=== PATIENT | female | born 1995 | race African-American/Black ===

== ENCOUNTER 2016-10-21 19:44 | Emergency (ER) | payer MEDICAID, OTHER ==
[~2016-10-21] VITALS: Ht 165.1 cm; Wt 64.9 kg
[~2016-10-21 19:44] MED LIST: MACROBID100 MG ORAL
[2016-10-21] MEDS ORDERED: NKM (20:20)
[2016-10-21] MEDS ORDERED: IBUPROFEN600 MG ORAL (21:13)
[2016-10-21 21:25] VITALS: BP 109/71
--- NOTE | 2016-10-21 22:24 | Emergency Room Report ---
History of Present Illness General Chief Complaint: General Complaint Source: Patient, Medical Record Present Illness HPI 21-year-old female presents ED for evaluation. States that she's been having right hand numbness and tingling sensation for the last 2 days. Denies trauma. Noted tingling sensations initially in the hand now spread to forearm. Notes pain which is sharp. 10 out of 10. Radiating through the forearm. No aggravating relieving factors. States pain is worse when she wakes up and slowly resolves. Denies chest pain or shortness of breath. Denies any weakness to the arm. No other aggravating or relieving factors. Denies any other associated symptoms Allergies: Coded Allergies: LATEX (Unverified Allergy, Mild, Hives, 04/02/15) Kiwi (Verified Allergy, Unknown, 10/21/16) PINEAPPLE (Unverified Allergy, Unknown, 04/22/15) Patient History Past Medical History: asthma Past Surgical History: none Pertinent Family History: none Social History: Denies: alcohol use, drug use, smoking Last Menstrual Period: 10/07/2016 Now: No : 1 Para: 0 Reviewed Nursing Documentation: PMH: Agreed, PSxH: Agreed Nursing Documentation-PMH Hx Cardiac Problems: Yes - Murmur Hx Asthma: Yes Review of Systems All Other Systems: negative except mentioned in HPI Physical Exam Vital Signs Date Time Temp Pulse Resp B/P Pulse Ox O2 Delivery O2 Flow Rate FiO2 10/21/16 19:49 98.4 70 16 117/79 95 Room Air Sp02 EP Interpretation: reviewed, normal General Appearance: no apparent distress, alert, GCS 15, non-toxic Head: normocephalic Eyes: bilateral eye PERRL, bilateral eye normal inspection ENT: normal ENT inspection Neck: normal inspection Respiratory: chest non-tender, lungs clear, normal breath sounds, speaking full sentences Cardiovascular #1: regular rate, rhythm, no edema Gastrointestinal: normal inspection Rectal: deferred Genitourinary: no CVA tenderness Musculoskeletal: back normal, gait/station normal, normal range of motion, tender - worsening tingling with pressure on median nerve Neurologic: alert, oriented x3, responsive, motor strength/tone normal, sensory intact, speech normal, sensory deficit - R hand Psychiatric: judgement/insight normal, memory normal, mood/affect normal, no suicidal/homicidal ideation Skin: normal inspection Lymphatic: normal inspection Procedures Splinting Splinting : Consent: Verbal Pre-Made Type: velcro Splint: wrist Pre-Proc Neuro Vasc Exam: normal Post-Proc Neuro Vasc Exam: normal Patient Tolerated: Well Complications: None Medical Decision Making Diagnostic Impression: Primary Impression: Carpal tunnel syndrome Qualified Codes: G56.01 - Carpal tunnel syndrome, right upper limb ER Course Hospital Course 21-year-old female presents to ED complaining of R hand/tingling pain no trauma Differential diagnoses include: Fracture, dislocation, sprain, contusion, bursitis Clinical course Patient placed on stretcher. After initial history, physical exam reveals a young female in no acute distress. There is pain localized to the fourth and fifth digits of right hand. Pain radiates down the forearm. Pain is worsened with median nerve compression. Consistent with carpal tunnel syndrome placed in wrist splint Diagnosis - carpal tunnel syndrome stable and discharged to home with prescription for Motrin. Followup with PMD. Return to ED if symptoms recur or worsen Last Vital Signs Date Time Temp Pulse Resp B/P Pulse Ox O2 Delivery O2 Flow Rate FiO2 10/21/16 19:49 98.4 70 16 117/79 95 Room Air Status: improved Disposition: HOME, SELF-CARE Condition: Stable Scripts Ibuprofen* (MOTRIN*) 600 Mg Tablet 600 MG ORAL Q8H Y for For Pain, #30 TAB 0 Refills Prov: CECI PORRAS M.D. 10/21/16 Patient Instructions: Carpal Tunnel Syndrome, [id number] CECI PORRAS M.D. Oct 21, 2016 22:24
== END 2016-10-21 21:30 | disposition home or self-care (01) ==
LOC: EMR 20:19
DX: G56.01 Carpal tunnel syndrome, right upper limb (principal); J45.909 Unspecified asthma, uncomplicated; R01.1 Cardiac murmur, unspecified; Z91.040 Latex allergy status; Z91.018 Allergy to other foods
CPT/HCPCS: 29260; 99283

== ENCOUNTER 2016-10-23 03:35 | Emergency (ER) | payer OTHER ==
[~2016-10-23] VITALS: Ht 165.1 cm; Wt 64.9 kg
[~2016-10-23 03:35] MED LIST changes: +IBUPROFEN600 MG ORAL; +NKM
[2016-10-23 04:12] LABS: APPEARANCE,URINE CLOUDY; KETONES,URINE NEGATIVE (NEGATIVE); LEUKOCYTE ESTERASE ,URINE 1+ (NEGATIVE); NITRITE,URINE NEGATIVE (NEGATIVE); PH,URINE 6.5 (4.5-8.0); PROTEIN,URINE 2+ (NEGATIVE); UROBILINOGEN,URINE NORMAL MG/DL (0.0-1.0)
[2016-10-23 04:20] LABS: BACTERIA,URINE FEW /HPF; RBC,URINE TNTC /HPF (0 - 2); SQUAMOUS EPITHELIAL CELL,UR FEW /LPF (NONE/OCC)
[2016-10-23 04:50] LABS: BASOPHILS % (AUTO) 0.7 % (0.0-2.0); EOSINOPHILS % (AUTO) 6.2 % (0.0-3.0); LYMPHOCYTES % (AUTO) 35.6 % (20.0-45.0); MEAN CORPUSCULAR HEMOGLOBIN 29.6 PG (27.0-31.0); MEAN CORPUSCULAR HGB CONC 33.1 G/DL (32.0-36.0); MEAN CORPUSCULAR VOLUME 89 FL (80-99); MEAN PLATELET VOLUME 8.8 FL (6.5-10.1); MONOCYTES % (AUTO) 8.7 % (1.0-10.0); NEUTROPHILS % (AUTO) 48.8 % (45.0-75.0); PLATELET COUNT 203 K/UL (150-450); RED BLOOD COUNT 4.66 M/UL (4.20-5.40); RED CELL DISTRIBUTION WIDTH 13.1 % (11.6-14.8); WHITE BLOOD COUNT 4.9 K/UL (4.8-10.8)
[2016-10-23 05:08] LABS: ALANINE AMINOTRANSFERASE 10 U/L (3-33); ALBUMIN/GLOBULIN RATIO 1.2 (1.0-2.7); ANION GAP 13 (5-15); ASPARTATE AMINO TRANSFERASE 17 U/L (5-40); CALCIUM 9.4 mg/dL (8.6-10.2); CARBON DIOXIDE 27 mEQ/L (20-30); CHLORIDE 100 mEQ/L (98-107); CREATININE 0.9 mg/dL (0.5-0.9); GLOMERULAR FILTRATION RATE > 60 mL/min (>60); HEMOLYSIS 2; LIPASE 49 U/L (< 60); POTASSIUM 4.4 mEQ/L (3.4-4.9); SODIUM 140 mEQ/L (135-145); TOTAL PROTEIN 7.8 g/dL (6.6-8.7)
[2016-10-23 05:27] VITALS: BP 105/67
[2016-10-23 05:41] VITALS: BP 105/67
--- NOTE | 2016-10-23 06:40 | Emergency Room Report ---
History of Present Illness General Chief Complaint: Vaginal Source: Patient Present Illness HPI 21-year-old female presents ED complaining of vaginal bleeding and lower abdominal pain. States symptoms started yesterday. Pain is cramping, 8/10, nonradiating. No aggravating relieving factors. Patient states her period finished at end of September. Patient states that she had a miscarriage last year she has had irregular periods. Patient states she also has history of ruptured ovarian cyst. No aggravating or relieving factors. Denies any other associated symptoms Allergies: Coded Allergies: LATEX (Unverified Allergy, Mild, Hives, 04/02/15) Kiwi (Verified Allergy, Unknown, 10/21/16) PINEAPPLE (Unverified Allergy, Unknown, 04/22/15) Patient History Past Medical History: asthma Past Surgical History: none Pertinent Family History: none Social History: Denies: alcohol use, drug use, smoking Last Menstrual Period: OCT 07 Now: No : 0 Para: 1 Immunizations: UTD Reviewed Nursing Documentation: PMH: Agreed, PSxH: Agreed Nursing Documentation-PMH Hx Asthma: Yes Review of Systems All Other Systems: negative except mentioned in HPI Physical Exam Vital Signs Date Time Temp Pulse Resp B/P Pulse Ox O2 Delivery O2 Flow Rate FiO2 10/23/16 03:45 97.9 60 18 101/66 97 Room Air Sp02 EP Interpretation: reviewed, normal General Appearance: no apparent distress, alert, GCS 15, non-toxic Head: normocephalic, atraumatic Eyes: bilateral eye PERRL, bilateral eye normal inspection ENT: hearing grossly normal, normal pharynx, no angioedema, normal voice Neck: full range of motion, supple/symm/no masses Respiratory: chest non-tender, lungs clear, normal breath sounds, speaking full sentences Cardiovascular #1: regular rate, rhythm, no edema Cardiovascular #2: 2+ carotid (R), 2+ carotid (L), 2+ radial (R), 2+ radial (L) , 2+ dorsalis pedis (R), 2+ dorsalis pedis (L) Gastrointestinal: normal bowel sounds, non tender, soft, non-distended, no guarding, no rebound Rectal: deferred Genitourinary: normal inspection, no CVA tenderness Musculoskeletal: back normal, gait/station normal, normal range of motion, non- tender Neurologic: alert, oriented x3, responsive, motor strength/tone normal, sensory intact, speech normal Psychiatric: judgement/insight normal, memory normal, mood/affect normal, no suicidal/homicidal ideation Reflexes: 3+ bicep (R), 3+ bicep (L), 3+ tricep (R), 3+ tricep (L), 3+ knee (R) , 3+ knee (L) Skin: normal color, no rash, warm/dry, well hydrated Lymphatic: no adenopathy Medical Decision Making Diagnostic Impression: Primary Impression: Dysfunctional uterine bleeding ER Course Hospital Course 21-year-old F presents to ED with lower abdominal pain, bleeding Differential diagnosis includes-appendicitis, cholecystitis, small bowel obstruction, gastritis, Clinical course Patient placed on stretcher. After initial history and physical I ordered labs , IV fluids, and US Labs - no leukocytosis, electrolytes ok, LFTs normal, UA unremarkable Pelvic US - no acute process reassurance given. I feel this is a highly complex case requiring extensive working including EKG/ Rhythm strip, Xray/CT/US, Blood/urine lab work, repeat exams while in ED, and administration of strong opiates/narcotics for pain control, admission to hospital or close patient follow up. Diagnosis - DUB Stable and discharged to home. Followup with PMD. Return to ED if symptoms recur or worsen Labs Test 10/23/16 03:15 10/23/16 04:40 Urine Color Yellow Urine Appearance Cloudy Urine pH 6.5 (4.5-8.0) Urine Specific [place] 1.015 (1.005-1.035) Urine Protein 2+ (NEGATIVE) Urine Glucose (UA) Negative (NEGATIVE) Urine Ketones Negative (NEGATIVE) Urine Occult Blood 5+ (NEGATIVE) Urine Nitrite Negative (NEGATIVE) Urine Bilirubin Negative (NEGATIVE) Urine Urobilinogen Normal MG/DL (0.0-1.0) Urine Leukocyte Esterase 1+ (NEGATIVE) Urine RBC Tntc /HPF (0 - 2) Urine WBC 2-4 /HPF (0 - 2) Urine Squamous Epithelial Cells Few /LPF (NONE/OCC) Urine Bacteria Few /HPF (NONE) Urine HCG, Qualitative Negative White Blood Count 4.9 K/UL (4.8-10.8) Red Blood Count 4.66 M/UL (4.20-5.40) Hemoglobin 13.8 G/DL (12.0-16.0) Hematocrit 41.6 % (37.0-47.0) Mean Corpuscular Volume 89 FL (80-99) Mean Corpuscular Hemoglobin 29.6 PG (27.0-31.0) Mean Corpuscular Hemoglobin Concent 33.1 G/DL (32.0-36.0) Red Cell Distribution Width 13.1 % (11.6-14.8) Platelet Count 203 K/UL (150-450) Mean Platelet Volume 8.8 FL (6.5-10.1) Neutrophils (%) (Auto) 48.8 % (45.0-75.0) Lymphocytes (%) (Auto) 35.6 % (20.0-45.0) Monocytes (%) (Auto) 8.7 % (1.0-10.0) Eosinophils (%) (Auto) 6.2 % (0.0-3.0) Basophils (%) (Auto) 0.7 % (0.0-2.0) Sodium Level 140 mEQ/L (135-145) Potassium Level 4.4 mEQ/L (3.4-4.9) Chloride Level 100 mEQ/L (98-107) Carbon Dioxide Level 27 mEQ/L (20-30) Anion Gap 13 (5-15) Blood Urea Nitrogen 18 mg/dL (7-23) Creatinine 0.9 mg/dL (0.5-0.9) Estimat Glomerular Filtration Rate > 60 mL/min (>60) Glucose Level 99 mg/dL (74-106) Calcium Level 9.4 mg/dL (8.6-10.2) Total Bilirubin 0.3 mg/dL (0.0-1.2) Aspartate Amino Transf (AST/SGOT) 17 U/L (5-40) Alanine Aminotransferase (ALT/SGPT) 10 U/L (3-33) Alkaline Phosphatase 72 U/L (35-104) Total Protein 7.8 g/dL (6.6-8.7) Albumin 4.4 g/dL (3.5-5.2) Globulin 3.4 g/dL Albumin/Globulin Ratio 1.2 (1.0-2.7) Lipase 49 U/L (< 60) CT/MRI/US Diagnostic Results CT/MRI/US Diagnostic Results : Imaging Test Ordered: Pelvic US Impression no acute process Last Vital Signs Date Time Temp Pulse Resp B/P Pulse Ox O2 Delivery O2 Flow Rate FiO2 10/23/16 05:41 97.9 67 18 105/67 98 Room Air Status: improved Disposition: HOME, SELF-CARE Condition: Stable Patient Instructions: Dysfunctional Uterine Bleeding CECI PORRAS M.D. Oct 23, 2016 06:40
--- NOTE | 2016-10-23 11:44 | Diagnostic Imaging Report ---
Indication: Pelvic pain, pelvic bleeding. Negative test Technique: Transabdominal and transvaginal images Comparison: 04/22/2015 Findings: Uterus is retroverted, measures 6.5 cm length by 2.9 cm AP. Endometrium measures 3 mm thick. No myometrial abnormalities. Right ovary 3 bone centimeters length. Left ovary measures 4.6 cm length. No adnexal mass. No free cul-de-sac fluid. No significant change Impression: Negative
== END 2016-10-23 06:27 | disposition home or self-care (01) ==
LOC: EMR 04:02
DX: N93.8 Other specified abnormal uterine and vaginal bleeding (principal); J45.909 Unspecified asthma, uncomplicated; Z91.040 Latex allergy status; Z91.018 Allergy to other foods
CPT/HCPCS: 36415; 76830; 76856; 80053; 81003; 81025; 83690; 85025; 99284

== ENCOUNTER 2016-11-19 22:02 | Emergency (ER) | payer OTHER ==
[~2016-11-19] VITALS: Ht 167.6 cm; Wt 66.7 kg
[2016-11-19] MEDS ORDERED: NKM (22:20)
[2016-11-19] MEDS ORDERED: IBUPROFEN600 MG ORAL (22:41)
[2016-11-19] MEDS ORDERED: Ketorolac 60mg Inj IM ONE (22:45)
--- NOTE | 2016-11-19 23:14 | Emergency Room Report ---
History of Present Illness General Chief Complaint: Sore Throat Source: Patient Present Illness HPI 21YOF with sore throat and cough for 1 week. C/o pain to left side of throat for 1 week associated with dry cough. Denies smoking, asthma. Denies fever/ chills, earache, chest pain, SOB, abd pain. Has not taken any OTC meds. Sick contact with similar symptom at home. Allergies: Coded Allergies: LATEX (Unverified Allergy, Mild, Hives, 04/02/15) Kiwi (Verified Allergy, Unknown, 10/21/16) PINEAPPLE (Unverified Allergy, Unknown, 04/22/15) Patient History Past Medical History: none Past Surgical History: none Pertinent Family History: none Social History: Denies: alcohol use, drug use, smoking Last Menstrual Period: 10/22/16 Now: No : 2 Para: 0 Immunizations: UTD Reviewed Nursing Documentation: PMH: Agreed, PSxH: Agreed Nursing Documentation-PMH Hx Cardiac Problems: Yes - heart murmur Hx Asthma: Yes Review of Systems All Other Systems: negative except mentioned in HPI Physical Exam Vital Signs Date Time Temp Pulse Resp B/P Pulse Ox O2 Delivery O2 Flow Rate FiO2 11/19/16 22:16 98.8 79 15 131/85 100 Room Air Sp02 EP Interpretation: reviewed, normal General Appearance: normal inspection, well appearing, no apparent distress, alert, GCS 15, non-toxic Head: normocephalic, atraumatic Eyes: bilateral eye EOMI, bilateral eye PERRL ENT: normal ENT inspection, hearing grossly normal, normal pharynx, no angioedema, normal voice, TMs + canals normal, uvula midline, moist mucus membranes Neck: normal inspection, full range of motion, supple, no bony tend Respiratory: normal inspection, lungs clear, normal breath sounds, no respiratory distress, no retraction, no wheezing Cardiovascular #1: regular rate, rhythm, no edema Gastrointestinal: normal inspection, normal bowel sounds, non tender, soft, no guarding, no hernia Genitourinary: no CVA tenderness Musculoskeletal: normal inspection, back normal, normal range of motion, Zunilda' s Sign negative Neurologic: normal inspection, alert, oriented x3, responsive, latin american studies director III-XII nml as tested, motor strength/tone normal, speech normal Psychiatric: normal inspection, judgement/insight normal, mood/affect normal Skin: normal inspection, normal color, no rash Lymphatic: normal inspection, other - Left throat adenopathy Medical Decision Making Diagnostic Impression: Primary Impression: Sore throat ER Course 21YO F with sore throat, likely laryngitis, viral pharyngitis given afebrile, no signs of strep/bacterial infection in throat or lungs, assoc with cough, sick contact at home. IM toradol and PO dex given in ED Rx iburpfoen PRN sore throat PMD followup as needed DC home Last Vital Signs Date Time Temp Pulse Resp B/P Pulse Ox O2 Delivery O2 Flow Rate FiO2 11/19/16 22:16 98.8 79 15 131/85 100 Room Air Status: improved Disposition: HOME, SELF-CARE Condition: Improved Scripts Ibuprofen* (MOTRIN*) 600 Mg Tablet 600 MG ORAL THREE TIMES A DAY for sore throat, #30 TAB 0 Refills Prov: MALORIE FLEMING M.D. 11/19/16 Referrals: [employer] [facility],REFERRIN (PCP) Patient Instructions: Laryngitis Additional Instructions: - Take high-dose ibuprofen 600mg every 8 hours with food/water as needed for sore throat - Try tea with honey or throat lozenges (quinteros's) to soothe your throat - Drink plenty of water MALORIE FLEMING M.D. Nov 19, 2016 23:14
[2016-11-19 23:19] VITALS: BP 125/76
== END 2016-11-19 23:19 | disposition home or self-care (01) ==
LOC: EMR 22:11
DX: R07.0 Pain in throat (principal); R05 Cough; Z91.040 Latex allergy status; Z91.018 Allergy to other foods; J45.909 Unspecified asthma, uncomplicated
CPT/HCPCS: 96372; 99283; J8540

== ENCOUNTER 2016-12-29 12:14 | Emergency (ER) | payer SELFPAY ==
[~2016-12-29] VITALS: Ht 165.1 cm; Wt 66.7 kg
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
[2016-12-29 13:00] LABS: APPEARANCE,URINE CLEAR; KETONES,URINE NEGATIVE (NEGATIVE); LEUKOCYTE ESTERASE ,URINE 1+ (NEGATIVE); NITRITE,URINE NEGATIVE (NEGATIVE); PH,URINE 6.5 (4.5-8.0); PROTEIN,URINE NEGATIVE (NEGATIVE); UROBILINOGEN,URINE NORMAL MG/DL (0.0-1.0)
[2016-12-29 13:07] VITALS: BP 111/76
[2016-12-29 13:18] LABS: BACTERIA,URINE FEW /HPF; RBC,URINE 0-2 /HPF (0 - 2); SQUAMOUS EPITHELIAL CELL,UR FEW /LPF (NONE/OCC)
[2016-12-29] MEDS ORDERED: ANUSOL-HC25 MG RECTAL (13:21)
[2016-12-29] MEDS ORDERED: CEPHALEXIN500 MG ORAL (13:21)
[2016-12-29] MEDS ORDERED: DOCUSATE SODIU250 MG ORAL (13:21)
[2016-12-29 13:26] VITALS: BP 111/76
== END 2016-12-29 13:32 | disposition home or self-care (01) ==
LOC: EMR 12:26
DX: K59.00 Constipation, unspecified (principal); K64.8 Other hemorrhoids; J45.909 Unspecified asthma, uncomplicated; Z91.040 Latex allergy status; Z91.018 Allergy to other foods; Z80.41 Family history of malignant neoplasm of ovary
CPT/HCPCS: 81001; 99284

== ENCOUNTER 2017-01-31 18:11 | Emergency (ER) | payer OTHER ==
[~2017-01-31] VITALS: Ht 165.1 cm; Wt 64.9 kg
[~2017-01-31 18:11] MED LIST changes: +ANUSOL-HC25 MG RECTAL; +CEPHALEXIN500 MG ORAL; +DOCUSATE SODIU250 MG ORAL
[2017-01-31] MEDS ORDERED: Acetaminophen 500mg (ES) tab ORAL ONE (19:00)
[2017-01-31] MEDS ORDERED: Morphine Sulfate 4mg/ml Inj IVP ONE (19:15)
[2017-01-31] MEDS ORDERED: Metoclopramide 10mg/2ml Inj IVP ONE (19:15)
[2017-01-31 19:39] LABS: BASOPHILS % (AUTO) 1.1 % (0.0-2.0); EOSINOPHILS % (AUTO) 0.2 % (0.0-3.0); LYMPHOCYTES % (AUTO) 20.3 % (20.0-45.0); MEAN CORPUSCULAR HEMOGLOBIN 30.7 PG (27.0-31.0); MEAN CORPUSCULAR HGB CONC 34.3 G/DL (32.0-36.0); MEAN CORPUSCULAR VOLUME 90 FL (80-99); MEAN PLATELET VOLUME 9.4 FL (6.5-10.1); MONOCYTES % (AUTO) 10.4 % (1.0-10.0); PLATELET COUNT 134 K/UL (150-450); RED BLOOD COUNT 4.29 M/UL (4.20-5.40); RED CELL DISTRIBUTION WIDTH 11.9 % (11.6-14.8); WHITE BLOOD COUNT 4.8 K/UL (4.8-10.8)
[2017-01-31 19:41] LABS: APPEARANCE,URINE SLIGHTLY CLOUDY; KETONES,URINE NEGATIVE (NEGATIVE); LEUKOCYTE ESTERASE ,URINE 3+ (NEGATIVE); NITRITE,URINE NEGATIVE (NEGATIVE); PH,URINE 6 (4.5-8.0); PROTEIN,URINE 2+ (NEGATIVE); UROBILINOGEN,URINE NORMAL MG/DL (0.0-1.0)
[2017-01-31 19:49] LABS: ALANINE AMINOTRANSFERASE 12 U/L (3-33); ALBUMIN/GLOBULIN RATIO 1.2 (1.0-2.7); ANION GAP 16 (5-15); ASPARTATE AMINO TRANSFERASE 25 U/L (5-40); CALCIUM 8.9 mg/dL (8.6-10.2); CARBON DIOXIDE 24 mEQ/L (20-30); CHLORIDE 95 mEQ/L (98-107); GLOMERULAR FILTRATION RATE > 60 mL/min (>60); HEMOLYSIS 46; LIPASE 45 U/L (< 60); POTASSIUM 4.2 mEQ/L (3.4-4.9); SODIUM 135 mEQ/L (135-145); TOTAL PROTEIN 7.8 g/dL (6.6-8.7)
[2017-01-31 19:57] LABS: BACTERIA,URINE MODERATE /HPF; SQUAMOUS EPITHELIAL CELL,UR MANY /LPF (NONE/OCC); WBC,URINE 20-30 /HPF (0 - 2)
[2017-01-31] MEDS ORDERED: IBUPROFEN600 MG ORAL (20:32)
[2017-01-31] MEDS ORDERED: CEPHALEXIN500 MG ORAL (20:32)
[2017-01-31 20:49] VITALS: BP 98/58
--- NOTE | 2017-01-31 21:11 | Emergency Room Report ---
History of Present Illness General Chief Complaint: Abdominal Pain Source: Patient Present Illness HPI The patient is a 21-year-old female presenting for abdominal pain and fever for the past 3 days. The patient was treated here one week prior for constipation and hemorrhoid and states that the constipation has resolved. She is now complaining of 8/10 pain in the midabdomen and does not radiate. No known provoking or relieving factors. She has not tried any medications for the fever. She does admit to nausea and one episode of vomiting this morning. She denies other symptoms including neck pain or stiffness, rash, shortness of breath, chest pain, dysuria, vaginal discharge, back pain Allergies: Coded Allergies: LATEX (Unverified Allergy, Mild, Hives, 04/02/15) Kiwi (Verified Allergy, Unknown, 10/21/16) PINEAPPLE (Unverified Allergy, Unknown, 04/22/15) Patient History Past Medical History: see triage record Pertinent Family History: none Last Menstrual Period: 01/05/17 Reviewed Nursing Documentation: PMH: Agreed, PSxH: Agreed Nursing Documentation-PMH Past Medical History: No History, Except For Hx Cardiac Problems: Yes - heart murmur Hx Asthma: Yes Review of Systems All Other Systems: negative except mentioned in HPI Physical Exam Vital Signs Date Time Temp Pulse Resp B/P Pulse Ox O2 Delivery O2 Flow Rate FiO2 01/31/17 18:28 102.6 112 18 109/72 98 Room Air Sp02 EP Interpretation: reviewed, normal General Appearance: no apparent distress, alert, GCS 15, non-toxic Head: normocephalic, atraumatic Eyes: bilateral eye PERRL, bilateral eye normal inspection ENT: hearing grossly normal, normal pharynx, no angioedema, normal voice, uvula midline Neck: full range of motion, no bony tend, supple/symm/no masses Respiratory: chest non-tender, lungs clear, normal breath sounds, speaking full sentences Cardiovascular #1: regular rate, rhythm, no edema Gastrointestinal: normal bowel sounds, soft, non-distended, no guarding, no rebound, tenderness - epigastric and suprapubic Rectal: deferred Musculoskeletal: back normal, gait/station normal, normal range of motion, non- tender Neurologic: alert, oriented x3, responsive, motor strength/tone normal, sensory intact, speech normal Psychiatric: judgement/insight normal, memory normal, mood/affect normal, no suicidal/homicidal ideation Skin: normal color, no rash, warm/dry, well hydrated Lymphatic: no adenopathy Medical Decision Making PA Attestation Dr. Burton is my supervising physician. Patient management was discussed with my supervising physician Diagnostic Impression: Primary Impression: UTI (urinary tract infection) Qualified Codes: N39.0 - Urinary tract infection, site not specified ER Course The patient is a 21-year-old female presenting for abdominal pain and fever Differential diagnoses considered include but not limited to gastritis, pancreatitis, appendicitis, , UTI, among others PE: pt is febrile. NAD HEENT is unremarkable Lungs are clear to auscultation bilaterally Abdomen is soft. Normal bowel sounds. There is tenderness to palpation over the epigastric and suprapubic regions only. No guarding. No CVA tenderness Blood work is unremarkable. No leukocytosis Urinalysis shows signs of infection She is given IV fluids, Zofran, morphine, and Tylenol. Fever has reduced and pain is now under control She will be discharged home and treated for UTI with Keflex. ER precautions given Laboratory Tests Test 01/31/17 18:39 01/31/17 19:20 Urine Color Yellow Urine Appearance Slightly cloudy Urine pH 6 (4.5-8.0) Urine Specific Sagle 1.020 (1.005-1.035) Urine Protein 2+ (NEGATIVE) H Urine Glucose (UA) Negative (NEGATIVE) Urine Ketones Negative (NEGATIVE) Urine Occult Blood 1+ (NEGATIVE) H Urine Nitrite Negative (NEGATIVE) Urine Bilirubin Negative (NEGATIVE) Urine Urobilinogen Normal MG/DL (0.0-1.0) Urine Leukocyte Esterase 3+ (NEGATIVE) H Urine RBC 2-4 /HPF (0 - 2) H Urine WBC 20-30 /HPF (0 - 2) H Urine Squamous Epithelial Cells Many /LPF (NONE/OCC) H Urine Bacteria Moderate /HPF (NONE) H Urine HCG, Qualitative Negative White Blood Count 4.8 K/UL (4.8-10.8) Red Blood Count 4.29 M/UL (4.20-5.40) Hemoglobin 13.2 G/DL (12.0-16.0) Hematocrit 38.5 % (37.0-47.0) Mean Corpuscular Volume 90 FL (80-99) Mean Corpuscular Hemoglobin 30.7 PG (27.0-31.0) Mean Corpuscular Hemoglobin Concent 34.3 G/DL (32.0-36.0) Red Cell Distribution Width 11.9 % (11.6-14.8) Platelet Count 134 K/UL (150-450) L Mean Platelet Volume 9.4 FL (6.5-10.1) Neutrophils (%) (Auto) 68.0 % (45.0-75.0) Lymphocytes (%) (Auto) 20.3 % (20.0-45.0) Monocytes (%) (Auto) 10.4 % (1.0-10.0) H Eosinophils (%) (Auto) 0.2 % (0.0-3.0) Basophils (%) (Auto) 1.1 % (0.0-2.0) Sodium Level 135 mEQ/L (135-145) Potassium Level 4.2 mEQ/L (3.4-4.9) Chloride Level 95 mEQ/L (98-107) L Carbon Dioxide Level 24 mEQ/L (20-30) Anion Gap 16 (5-15) H Blood Urea Nitrogen 8 mg/dL (7-23) Creatinine 1.0 mg/dL (0.5-0.9) H Estimate Glomerular Filtration Rate > 60 mL/min (>60) Glucose Level 95 mg/dL (74-106) Calcium Level 8.9 mg/dL (8.6-10.2) Total Bilirubin 0.4 mg/dL (0.0-1.2) Aspartate Amino Transferase (AST) 25 U/L (5-40) Alanine Aminotransferase (ALT) 12 U/L (3-33) Alkaline Phosphatase 57 U/L (35-104) Total Protein 7.8 g/dL (6.6-8.7) Albumin 4.3 g/dL (3.5-5.2) Globulin 3.5 g/dL Albumin/Globulin Ratio 1.2 (1.0-2.7) Lipase 45 U/L (< 60) Lab Results Impression CBC shows no leukocytosis. CMP unremarkable UA shows signs of infection Last Vital Signs Date Time Temp Pulse Resp B/P Pulse Ox O2 Delivery O2 Flow Rate FiO2 01/31/17 18:28 102.6 112 18 109/72 98 Room Air Status: improved Disposition: HOME, SELF-CARE Condition: Improved Scripts Cephalexin* (KEFLEX*) 500 Mg Capsule 500 MG ORAL EVERY 6 HOURS, #28 CAP Prov: ARMANDO MONTOYA 01/31/17 Ibuprofen* (MOTRIN*) 600 Mg Tablet 600 MG ORAL Q8H Y for For Pain, #30 TAB 0 Refills Prov: ARMANDO MONTOYA 01/31/17 Referrals: [facility],REFERRING (PCP) Patient Instructions: Urinary Tract Infection Additional Instructions: I discussed my findings with the patient. All questions and concerns have been answered. Treatment and medication compliance have been addressed. I advised the patient that they need to follow up with PMD in 3-5 days. Return to ED if symptoms worsen, new symptoms arise, or if needed for any reason. Patient verbalized understanding of discharge instructions. ARMANDO MONTOYA Jan 31, 2017 21:11
== END 2017-01-31 20:49 | disposition home or self-care (01) ==
LOC: EMR 20:32
DX: N39.0 Urinary tract infection, site not specified (principal); R50.9 Fever, unspecified; R11.2 Nausea with vomiting, unspecified; Z91.040 Latex allergy status; Z91.018 Allergy to other foods
CPT/HCPCS: 36415; 80053; 81003; 81025; 83690; 85025; 87086; 96360; 96374; 96375; 99284; J2270; J2765

== ENCOUNTER 2017-05-31 23:30 | Emergency (ER) | payer OTHER ==
[~2017-05-31] VITALS: Ht 170.2 cm; Wt 61.2 kg
[2017-06-01] MEDS ORDERED: Albuterol ud Inhalation HHN ONE
[2017-06-01] MEDS ORDERED: Ipratropium 0.02% Inh Soln 2.5ml UD HHN ONE
[2017-06-01 00:06] VITALS: BP 104/73
[2017-06-01] MEDS ORDERED: AZITHROMYCIN250 MG ORAL (00:55)
[2017-06-01] MEDS ORDERED: PREDNISONE20 MG ORAL (00:55)
[2017-06-01] MEDS ORDERED: ALBUTEROL SULF8.5 GM INH (00:55)
[2017-06-01 01:02] VITALS: BP 104/73
--- NOTE | 2017-06-01 01:13 | Emergency Room Report ---
History of Present Illness General Chief Complaint: Syncope Source: Patient Present Illness HPI 21-year-old female presents ED her evaluation. Patient states that for last 1 month she's been having a persistent cough which is productive with greenish phlegm. Has tried cowg-ryx-aolhcgl medications without relief. States she had a childhood history of asthma but does not have an inhaler at this time. Notes difficulty with deep breaths. Denies chest pain. Denies fevers chills. Patient states she feels weak. No other aggravating relieving factors. Denies any other associated symptoms Allergies: Coded Allergies: LATEX (Unverified Allergy, Mild, Hives, 04/02/15) Kiwi (Verified Allergy, Unknown, 10/21/16) PINEAPPLE (Unverified Allergy, Unknown, 04/22/15) Patient History Past Medical History: asthma Past Surgical History: none Pertinent Family History: none Social History: Denies: smoking, alcohol use, drug use Last Menstrual Period: may 17 Now: No : 2 Immunizations: UTD Reviewed Nursing Documentation: PMH: Agreed, PSxH: Agreed Nursing Documentation-PMH Hx Cardiac Problems: Yes - heart murmur Hx Asthma: Yes Review of Systems All Other Systems: negative except mentioned in HPI Physical Exam Vital Signs Date Time Temp Pulse Resp B/P (MAP) Pulse Ox O2 Delivery O2 Flow Rate FiO2 05/31/17 23:31 98.2 76 18 117/76 98 06/01/17 00:06 Room Air Sp02 EP Interpretation: reviewed, normal General Appearance: no apparent distress, alert, GCS 15, non-toxic Head: normocephalic ENT: normal ENT inspection Neck: normal inspection Respiratory: decreased breath sounds, wheezing Cardiovascular #1: regular rate, rhythm, no edema Gastrointestinal: normal inspection Rectal: deferred Genitourinary: no CVA tenderness Musculoskeletal: normal inspection Neurologic: alert, oriented x3, responsive, motor strength/tone normal, sensory intact, speech normal Psychiatric: normal inspection Skin: normal inspection Lymphatic: normal inspection Medical Decision Making Diagnostic Impression: Primary Impression: Atypical pneumonia ER Course Hospital Course 21-year-old female presents to ED complaining of cough, chest tightness, weakness x 1 month Differential diagnoses include: URI, bronchitis, asthma/COPD, pneumonia Clinical course Patient placed on stretcher. After initial history and physical I ordered CXR and nebulizer treatment. CXR shows no lobar infiltrate Upon reassessment patient states cough and symptoms have improved. Given persistence of symptoms x1 month we will treat as atypical pneumonia I prescribe antibiotics Diagnosis - atypical pneumonia Stable and discharged home with prescriptions for Rx prednisone, Zpack, albuterol. Instructed to followup with PMD. Return to ED if symptoms recur or worsen Chest X-Ray Diagnostic Results Chest X-Ray Diagnostic Results : # of Views/Limited/Complete: 1 View Indication: Other - cough EP Interpretation: Yes Interpretation: no consolidation, no effusion, no pneumothorax, no acute cardiopulmonary disease Impression: No acute disease Electronically Signed by: Electronically signed by Justin Suggs MD Last Vital Signs Date Time Temp Pulse Resp B/P (MAP) Pulse Ox O2 Delivery O2 Flow Rate FiO2 06/01/17 01:02 98.2 66 14 104/73 98 Room Air Status: improved Disposition: HOME, SELF-CARE Condition: Stable Scripts Albuterol Sulfate* (ALBUTEROL SULFATE MDI*) 8.5 Gm Hfa.aer.ad 2 PUFF INH Q6H, #1 EA 0 Refills Prov: JUSTIN SUGGS M.D. 06/01/17 Prednisone* (PREDNISONE*) 20 Mg Tablet 40 MG ORAL DAILY, #10 TAB Prov: JUSTIN SUGGS M.D. 06/01/17 Azithromycin* (ZITHROMAX*) 250 Mg Tablet 250 MG ORAL DAILY, #6 TAB 0 Refills Take two tablets by mouth today, then take one tablet by mouth daily for four days Prov: JUSTIN SUGGS M.D. 06/01/17 Referrals: [facility],REF (PCP) Patient Instructions: Community-Acquired Pneumonia, Adult, Eepo-lo-Fltv JUSTIN SUGGS M.D. Jun 01, 2017 01:13
--- NOTE | 2017-06-01 11:40 | Diagnostic Imaging Report ---
Indication: Dyspnea Comparison: None A single view chest radiograph was obtained. Findings: Cardiomediastinal appearance is within normal limits for age. Pulmonary vascularity is appropriate. The diaphragmatic contour is smooth and costophrenic angles are sharp. No pleural effusions are identified. The bones are unremarkable. Impression: No acute findings
== END 2017-06-01 01:05 | disposition home or self-care (01) ==
LOC: EMR 23:50
DX: J18.9 Pneumonia, unspecified organism (principal); J45.909 Unspecified asthma, uncomplicated; Z91.040 Latex allergy status; Z91.018 Allergy to other foods
CPT/HCPCS: 71010; 94664; 99284

== ENCOUNTER 2017-08-28 14:36 | Emergency (ER) | payer OTHER ==
[~2017-08-28] VITALS: Ht 167.6 cm; Wt 59.9 kg
[~2017-08-28 14:36] MED LIST changes: +ALBUTEROL SULF8.5 GM INH; +AZITHROMYCIN250 MG ORAL; +PREDNISONE20 MG ORAL
[2017-08-28 14:45] VITALS: BP 117/73
[2017-08-28] MEDS ORDERED: Lidocaine 2% Visc 15ml soln ORAL ONE (15:30)
--- NOTE | 2017-08-28 15:30 | Emergency Room Report ---
History of Present Illness General Chief Complaint: Flu Like Symptoms Source: Patient Present Illness HPI 20-year-old female presents to ED complaining of flulike symptoms, sore throat and cough for the past few days. Patient reports history of fever yesterday up to 104, patient denies taking medications with mild relief of symptoms. Patient denies fever today. Patient reports history of sick contacts, states she has been taking care of her nephew who was recently diagnosed with flu and pneumonia; states she is concerned she may have pneumonia. Reports a history of asthma and treated with her inhaler; denies acute asthma symptoms currently. Patient states she uses her inhaler at home for acute exacerbations. Patient denies vomiting, chest pain, SOB. Allergies: Coded Allergies: LATEX (Unverified Allergy, Mild, Hives, 04/02/15) Kiwi (Verified Allergy, Unknown, 10/21/16) PINEAPPLE (Unverified Allergy, Unknown, 04/22/15) Patient History Past Medical History: see triage record Past Surgical History: unable to obtain Social History: Denies: smoking, alcohol use, drug use Last Menstrual Period: on period Now: No Immunizations: UTD Reviewed Nursing Documentation: PMH: Agreed, PSxH: Agreed Nursing Documentation-PMH Past Medical History: No History, Except For Hx Cardiac Problems: Yes - heart murmur Hx Asthma: Yes Review of Systems All Other Systems: negative except mentioned in HPI Physical Exam Vital Signs Date Time Temp Pulse Resp B/P (MAP) Pulse Ox O2 Delivery O2 Flow Rate FiO2 08/28/17 14:45 99.7 16 117/73 99 Room Air 08/28/17 14:45 83 Sp02 EP Interpretation: reviewed, normal General Appearance: no apparent distress, alert, GCS 15, non-toxic Head: normocephalic, atraumatic Eyes: bilateral eye normal inspection, bilateral eye PERRL, bilateral eye EOMI ENT: hearing grossly normal, normal pharynx, no angioedema, normal voice, TMs + canals normal, uvula midline, moist mucus membranes, pharyngeal erythema Neck: full range of motion, supple/symm/no masses Respiratory: lungs clear, normal breath sounds, no respiratory distress, no retraction, no accessory muscle use, no wheezing, rhonchi - intermittent end inspiratory rhonchi, speaking full sentences, other - no crackles Cardiovascular #1: regular rate, rhythm Gastrointestinal: non tender, soft, non-distended, no guarding, no rebound Musculoskeletal: back normal, gait/station normal, normal range of motion, non- tender Neurologic: alert, oriented x3, responsive, motor strength/tone normal, sensory intact, speech normal Skin: normal color, no rash, warm/dry, well hydrated Lymphatic: adenopathy Medical Decision Making PA Attestation Dr. Suggs is my supervising physician with whom patient management has been discussed with. Diagnostic Impression: Primary Impression: Sore throat ER Course Pt presents to ED c/o sore throat, cough, and flu-like symptoms. DDX considered but are not limited to influenza, viral URI, pneumonia, strep throat, rhinitis, sinusitis, otitis media, peritonsillar abscess. VITAL SIGNS are WNL, patient is .afebrile. ORDERS: Chest X-ray ordered, results show no acute disease, per the official radiology report. ED INTERVENTIONS: Ibuprofen Viscous lidocaine DISCHARGE: At this time pt is stable for d/c to home. -Rx given for Motrin/Ibuprofen for fever/pain. -Rx given for Amoxicillin Patient to take medications as instructed Will provide with patient care instructions and any necessary prescriptions. Care plan and follow-up instructions provided. Patient instructed to follow-up with primary care provider in 3 - 5 days. Patient questions asked and answered. ER precautions given. Patient instructed to return to ER immediately for any new or worsening of symptoms including but not limited to increasing SOB, persistent fever. Chest X-Ray Diagnostic Results Chest X-Ray Diagnostic Results : Chest X-Ray Ordered: Yes # of Views/Limited/Complete: 2 View Indication: Chest Pain EP Interpretation: Yes DUGLAS Xray: Interpretation reviewed, by supervising MD, and agrees with findings. Interpretation: no consolidation, no effusion, no pneumothorax, no acute cardiopulmonary disease Impression: No acute disease DUGLAS Scribe Text Zack Hodge PA-Tresa Last Vital Signs Date Time Temp Pulse Resp B/P (MAP) Pulse Ox O2 Delivery O2 Flow Rate FiO2 08/28/17 14:49 83 16 Room Air 08/28/17 14:45 99.7 117/73 99 Disposition: HOME, SELF-CARE Condition: Stable Scripts Ibuprofen* (MOTRIN*) 600 Mg Tablet 600 MG ORAL Q8H Y for For Pain, #30 TAB 0 Refills Prov: Josh Hodge P.A. 08/28/17 Amoxicillin* (AMOXIL*) 500 Mg Capsule 500 MG ORAL EVERY 8 HOURS for 7 Days, #21 CAP Prov: Josh Hodge 08/28/17 Patient Instructions: INFLUENZA (Adult) Additional Instructions: Follow with primary care provider in 3 - 5 days. Take medications as directed. Patient questions asked and answered. ER precautions given, patient instructed to return to ER immediately for any new or worsening of symptoms including but not limited to fever, voice changes, difficulty breathing, SOB. Josh Hodge Aug 28, 2017 15:30
[2017-08-28] MEDS ORDERED: AMOXICILLIN500 MG ORAL (16:33)
[2017-08-28] MEDS ORDERED: IBUPROFEN600 MG ORAL (16:34)
[2017-08-28 16:43] VITALS: BP 109/78
--- NOTE | 2017-08-28 16:55 | Diagnostic Imaging Report ---
Indication: Chest pain Comparison: None 2 views of the chest obtained. Findings: Cardiomediastinal silhouette and pulmonary vascularity are within normal limits for age. The diaphragmatic contour is smooth and costophrenic angles are sharp. No pleural effusions are identified. The bones are unremarkable. Impression: No acute disease
== END 2017-08-28 16:45 | disposition home or self-care (01) ==
LOC: EMR 15:12
DX: J02.9 Acute pharyngitis, unspecified (principal); J45.909 Unspecified asthma, uncomplicated; Z91.040 Latex allergy status; Z91.018 Allergy to other foods
CPT/HCPCS: 71046; 99284

== ENCOUNTER 2017-09-01 16:59 | Emergency (ER) | payer OTHER ==
[~2017-09-01] VITALS: Ht 170.2 cm; Wt 59.0 kg
[~2017-09-01 16:59] MED LIST changes: +AMOXICILLIN500 MG ORAL
[2017-09-01 17:07] VITALS: BP 116/78
--- NOTE | 2017-09-01 17:24 | Emergency Room Report ---
History of Present Illness General Chief Complaint: Flu Like Symptoms Source: Patient Present Illness HPI Patient presents with reports of ongoing nausea patient reports that she was here Previously with cough bodyaches Since then she has continued to have increased nausea vomiting Bodyache Denies any chest pain she feels that the cough is somewhat better Denies any abdominal pain Unknown regarding fever Patient reports that she had a significant sick contacts Allergies: Coded Allergies: LATEX (Unverified Allergy, Mild, Hives, 04/02/15) Kiwi (Verified Allergy, Unknown, 10/21/16) PINEAPPLE (Unverified Allergy, Unknown, 04/22/15) Patient History Past Medical History: see triage record Pertinent Family History: none Last Menstrual Period: 08/28/17 Now: No Reviewed Nursing Documentation: PMH: Agreed, PSxH: Agreed Nursing Documentation-PMH Past Medical History: No History, Except For Hx Cardiac Problems: Yes - heart murmur Hx Asthma: Yes Review of Systems All Other Systems: negative except mentioned in HPI Physical Exam Vital Signs Date Time Temp Pulse Resp B/P (MAP) Pulse Ox O2 Delivery O2 Flow Rate FiO2 09/01/17 17:02 100.0 115 16 116/78 96 Room Air Sp02 EP Interpretation: reviewed, normal General Appearance: no apparent distress Head: normocephalic, atraumatic Eyes: bilateral eye PERRL, bilateral eye EOMI ENT: hearing grossly normal, normal pharynx, TMs + canals normal, uvula midline Neck: full range of motion, supple, no meningismus, no bony tend Respiratory: lungs clear, normal breath sounds, no rhonchi, no respiratory distress, no retraction, no accessory muscle use Cardiovascular #1: normal peripheral pulses, regular rate, rhythm, no edema, no gallop, no JVD, no murmur Gastrointestinal: normal bowel sounds, non tender, soft, no mass, no organomegaly, non-distended, no guarding, no hernia, no pulsatile mass, no rebound Genitourinary: no CVA tenderness Musculoskeletal: normal inspection Neurologic: oriented x3, responsive, medical transcription III-XII nml as tested, motor strength/ tone normal, sensory intact Psychiatric: mood/affect normal Skin: normal color, no rash, warm/dry, palpation normal Lymphatic: normal inspection, no adenopathy Medical Decision Making Diagnostic Impression: Primary Impression: Influenza-like symptoms Additional Impression: Vomiting ER Course Multiple differentials considered Given the patient's vomiting and discomfort IV was established with hydration And antiemetics Patient's white blood for count is mildly low also clinically showing signs of viral syndrome I do not suspect meningitis Patient provide significant family history regarding ovarian cancer with the family including grandmother Patient has a followup with gynecology next week At this time given the previous presentation and now the symptoms as noted with vomiting and myalgia appears to be in line with flu like symptoms and the patient remains hemodynamically stable Will have initial conservative outpatient Labs Test 09/01/17 17:30 09/01/17 17:35 White Blood Count 3.6 K/UL (4.8-10.8) Red Blood Count 4.53 M/UL (4.20-5.40) Hemoglobin 13.1 G/DL (12.0-16.0) Hematocrit 39.7 % (37.0-47.0) Mean Corpuscular Volume 88 FL (80-99) Mean Corpuscular Hemoglobin 28.9 PG (27.0-31.0) Mean Corpuscular Hemoglobin Concent 33.0 G/DL (32.0-36.0) Red Cell Distribution Width 12.2 % (11.6-14.8) Platelet Count 156 K/UL (150-450) Mean Platelet Volume 7.8 FL (6.5-10.1) Neutrophils (%) (Auto) 64.4 % (45.0-75.0) Lymphocytes (%) (Auto) 23.7 % (20.0-45.0) Monocytes (%) (Auto) 11.1 % (1.0-10.0) Eosinophils (%) (Auto) 0.2 % (0.0-3.0) Basophils (%) (Auto) 0.6 % (0.0-2.0) Urine HCG, Qualitative Negative Sodium Level 137 MMOL/L (136-145) Potassium Level 3.6 MMOL/L (3.5-5.1) Chloride Level 100 MMOL/L (98-107) Carbon Dioxide Level 27 MMOL/L (21-32) Anion Gap 10 mmol/L (5-15) Blood Urea Nitrogen 10 mg/dL (7-18) Creatinine 0.9 MG/DL (0.55-1.30) Estimat Glomerular Filtration Rate > 60 mL/min (>60) Glucose Level 95 MG/DL (74-106) Calcium Level 9.4 MG/DL (8.5-10.1) Total Bilirubin 0.4 MG/DL (0.2-1.0) Aspartate Amino Transf (AST/SGOT) 22 U/L (15-37) Alanine Aminotransferase (ALT/SGPT) 17 U/L (12-78) Alkaline Phosphatase 72 U/L (46-116) Total Protein 8.6 G/DL (6.4-8.2) Albumin 3.9 G/DL (3.4-5.0) Globulin 4.7 g/dL Albumin/Globulin Ratio 0.8 (1.0-2.7) Lipase 153 U/L (73-393) Last Vital Signs Date Time Temp Pulse Resp B/P (MAP) Pulse Ox O2 Delivery O2 Flow Rate FiO2 09/01/17 17:07 115 16 Room Air 09/01/17 17:07 100.0 116/78 98 Status: improved Disposition: HOME, SELF-CARE Condition: Improved Scripts Ondansetron Odt* (ZOFRAN ODT*) 4 Mg Tab.rapdis 4 MG ORAL Q6H Y for Nausea & Vomiting, #12 TAB 0 Refills Prov: TEREZA SALMERON D.O. 09/01/17 Additional Instructions: Patient is provided with the discharge instructions notified to follow up with primary doctor in the next 2-3 days otherwise return to the er with any worsening symptoms. Please note that this report is being documented using [employer] technology. This can lead to erroneous entry secondary to incorrect interpretation by the dictating instrument. TEREZA SALMERON D.O. Sep 01, 2017 17:23
[2017-09-01 18:10] LABS: ANION GAP 10 mmol/L (5-15); BLOOD UREA NITROGEN 10 mg/dL (7-18); CALCIUM 9.4 MG/DL (8.5-10.1); CARBON DIOXIDE 27 MMOL/L (21-32); CHLORIDE 100 MMOL/L (98-107); CREATININE 0.9 MG/DL (0.55-1.30); POTASSIUM 3.6 MMOL/L (3.5-5.1); SODIUM 137 MMOL/L (136-145)
[2017-09-01 18:13] LABS: BASOPHILS % (AUTO) 0.6 % (0.0-2.0); EOSINOPHILS % (AUTO) 0.2 % (0.0-3.0); HEMATOCRIT 39.7 % (37.0-47.0); HEMOGLOBIN 13.1 G/DL (12.0-16.0); LYMPHOCYTES % (AUTO) 23.7 % (20.0-45.0); MEAN CORPUSCULAR VOLUME 88 FL (80-99); MONOCYTES % (AUTO) 11.1 % (1.0-10.0); NEUTROPHILS % (AUTO) 64.4 % (45.0-75.0); PLATELET COUNT 156 K/UL (150-450); RED BLOOD COUNT 4.53 M/UL (4.20-5.40); RED CELL DISTRIBUTION WIDTH 12.2 % (11.6-14.8); WHITE BLOOD COUNT 3.6 K/UL (4.8-10.8)
[2017-09-01 18:17] LABS: ALANINE AMINOTRANSFERASE 17 U/L (12-78); ALBUMIN 3.9 G/DL (3.4-5.0); ALBUMIN/GLOBULIN RATIO 0.8 (1.0-2.7); ALKALINE PHOSPHATASE 72 U/L (46-116); ASPARTATE AMINO TRANSFERASE 22 U/L (15-37); BILIRUBIN,TOTAL 0.4 MG/DL (0.2-1.0)
[2017-09-01] MEDS ORDERED: ZOFRAN ODT4 MG ORAL (18:33)
[2017-09-01 18:45] VITALS: BP 120/78
== END 2017-09-01 18:51 | disposition home or self-care (01) ==
LOC: EMR 17:25
DX: J11.1 Influenza due to unidentified influenza virus with other respiratory manifestations (principal); J45.909 Unspecified asthma, uncomplicated; R01.1 Cardiac murmur, unspecified; Z91.040 Latex allergy status; Z91.018 Allergy to other foods
CPT/HCPCS: 36415; 80053; 81025; 83690; 85025; 96361; 96374; 99284; J2405; 96372

== ENCOUNTER 2017-09-27 12:54 | Emergency (ER) | payer OTHER ==
[~2017-09-27] VITALS: Ht 160 cm; Wt 54.4 kg
[~2017-09-27 12:54] MED LIST changes: +ZOFRAN ODT4 MG ORAL
--- NOTE | 2017-09-27 13:24 | Emergency Room Report ---
History of Present Illness General Chief Complaint: Upper Respiratory Illness Source: Patient Present Illness HPI 22 yo female patient presents to ER complaining of flu-like symptoms for the past week. Patient reports cough, body aches, and vomiting. Reports dry cough and congestion. States coughing up mucus after prolonged coughing fits; denies blood in sputum. Patient denies SOB, chest pain. Patient reports recent personal history of flu-like symptoms "last month". Denies neck pain, CESPEDES, vision changes. Patient reports fever to 101. Patient reports taking Ibuprofen for relief of symptoms; last dosage yesterday. Patient reports hx of sick contacts; presents to ER with niece with similar symptoms. Patient denies abdominal pain, diarrhea, rash. Allergies: Coded Allergies: LATEX (Unverified Allergy, Mild, Hives, 04/02/15) Kiwi (Verified Allergy, Unknown, 10/21/16) MORPHINE (Verified Allergy, Unknown, 09/27/17) PINEAPPLE (Unverified Allergy, Unknown, 04/22/15) Patient History Past Medical History: see triage record Last Menstrual Period: 08/2017 Reviewed Nursing Documentation: PMH: Agreed, PSxH: Agreed Nursing Documentation-PMH Past Medical History: No History, Except For Hx Cardiac Problems: Yes - heart murmur Hx Asthma: Yes Review of Systems All Other Systems: negative except mentioned in HPI Physical Exam Vital Signs Date Time Temp Pulse Resp B/P (MAP) Pulse Ox O2 Delivery O2 Flow Rate FiO2 09/27/17 13:05 99.3 95 16 94/65 96 99.3 Sp02 EP Interpretation: reviewed, normal General Appearance: well appearing, no apparent distress, alert, GCS 15, non- toxic Head: normocephalic, atraumatic Eyes: bilateral eye normal inspection, bilateral eye PERRL ENT: normal pharynx, no angioedema, normal voice, TMs + canals normal, uvula midline, moist mucus membranes, nasal congestion, other - no pharyngeal erythema , no exudates Neck: full range of motion Respiratory: normal inspection, lungs clear, normal breath sounds, no rhonchi, no respiratory distress, no accessory muscle use, no wheezing, speaking full sentences Cardiovascular #1: regular rate, rhythm Gastrointestinal: normal bowel sounds, non tender, soft, no mass, no organomegaly, non-distended, no guarding, no rebound Musculoskeletal: back normal, digits/nails normal, gait/station normal, normal range of motion, no calf tenderness Neurologic: alert, oriented x3, responsive, motor strength/tone normal, normal gait Psychiatric: mood/affect normal Skin: no rash Lymphatic: no adenopathy Medical Decision Making PA Attestation Dr. Suggs is my supervising Physician whom patient management has been discussed with. Diagnostic Impression: Primary Impression: Upper respiratory infection ER Course Pt presents to ED c/o flu-like symptoms. DDX considered but are not limited to influenza, viral URI, strep throat, rhinitis, sinusitis, otitis media, gastritis. VITAL SIGNS patient is afebrile. ER COURSE: Patient provided with Tylenol and Zofran while in ER. Patient reports feeling better following administration of medication. Patient instructed likely viral etiology; informed patient that sick contacts in house may be passing to one another. Patient instructed to practice good hygiene practices at home to prevent spread to other members of household. Patient instructed to drink plenty of fluids. Patient reports understanding and agreement to treatment plan. DISCHARGE: At this time pt is stable for d/c to home. Patient resting comfortably, in no acute distress, nontoxic appearing. -Rx given for Tylenol/Acetaminophen for fever/pain. -Rx given for Zofran Patient to take medications as instructed Will provide with patient care instructions and any necessary prescriptions. Care plan and follow-up instructions provided. Patient instructed to follow-up with primary care provider in 3 - 5 days. Patient questions asked and answered. ER precautions given. Patient instructed to return to ER immediately for any new or worsening of symptoms including but not limited to increasing SOB, persistent fever. Last Vital Signs Date Time Temp Pulse Resp B/P (MAP) Pulse Ox O2 Delivery O2 Flow Rate FiO2 09/27/17 13:05 99.3 95 16 94/65 96 99.3 Disposition: HOME, SELF-CARE Condition: Stable Scripts Ondansetron Odt* (ZOFRAN ODT*) 4 Mg Tab.rapdis 4 MG ORAL Q6H Y for Nausea & Vomiting, #30 TAB Prov: Josh Hodge 09/27/17 Acetaminophen* (TYLENOL EXTRA STRENGTH*) 500 Mg Tablet 500 MG ORAL Q8H Y for Prn Headache/Temp > 101, #30 TAB 0 Refills Prov: Josh Hodge 2/17/18 Patient Instructions: Upper Respiratory Infection, Adult Additional Instructions: Followup with primary care provider in 3 -5 days. Take medications as directed. Patient questions asked and answered. ER precautions given, patient instructed to return to ER immediately for any new or worsening of symptoms. Josh Hodge Sep 27, 2017 13:24
[2017-09-27] MEDS ORDERED: Acetaminophen 500mg (ES) tab ORAL ONE (13:30)
[2017-09-27] MEDS ORDERED: TYLENOL EXTRA500 MG ORAL (13:42)
[2017-09-27] MEDS ORDERED: ZOFRAN ODT4 MG ORAL (13:42)
[2017-09-27 13:55] VITALS: BP 94/65
== END 2017-09-27 13:56 | disposition home or self-care (01) ==
LOC: EMR 13:54
DX: J06.9 Acute upper respiratory infection, unspecified (principal); J45.909 Unspecified asthma, uncomplicated; Z91.040 Latex allergy status; Z91.018 Allergy to other foods; Z88.5 Allergy status to narcotic agent
CPT/HCPCS: 99284

== ENCOUNTER 2018-03-26 05:19 | Emergency (ER) | payer OTHER ==
[~2018-03-26] VITALS: Ht 165.1 cm; Wt 63.5 kg
[~2018-03-26 05:19] MED LIST changes: +TYLENOL EXTRA500 MG ORAL
[2018-03-26 05:32] VITALS: BP 100/70
[2018-03-26] MEDS ORDERED: CIPROFLOXACIN500 M2 ORAL (05:44)
[2018-03-26] MEDS ORDERED: ZOFRAN4 M3 ORAL (05:44)
[2018-03-26 05:52] VITALS: BP 100/70
--- NOTE | 2018-03-26 05:53 | Emergency Room Report ---
History of Present Illness General Chief Complaint: Abdominal Pain Source: Patient Present Illness HPI Patient presents with complaints of left mid abdominal pain off-and-on for the past one month Patient reports that she was at [facility] several days ago Had fairly extensive blood work and urine sample test done she was negative for she reports that she is not quite sure what the CAT scan has shown but dad told her that she should follow up with chemical tester Denies any headache Denies any dysuria frequency Patient had questionable subjective fevers off and on as well Allergies: Coded Allergies: LATEX (Unverified Allergy, Mild, Hives, 04/02/15) Kiwi (Verified Allergy, Unknown, 10/21/16) MORPHINE (Verified Allergy, Unknown, 09/27/17) PINEAPPLE (Unverified Allergy, Unknown, 04/22/15) Patient History Past Medical History: see triage record Pertinent Family History: none Last Menstrual Period: last week Reviewed Nursing Documentation: PMH: Agreed; PSxH: Agreed Nursing Documentation-PMH Hx Cardiac Problems: Yes - heart murmur Hx Asthma: Yes Hx Gastrointestinal Problems: Yes - IBS Review of Systems All Other Systems: negative except mentioned in HPI Physical Exam Vital Signs Date Time Temp Pulse Resp B/P (MAP) Pulse Ox O2 Delivery O2 Flow Rate FiO2 03/26/18 05:25 99.0 99 16 100/70 99 Room Air 99.0 Sp02 EP Interpretation: reviewed, normal General Appearance: well appearing, no apparent distress Head: normocephalic, atraumatic Eyes: bilateral eye PERRL, bilateral eye EOMI ENT: hearing grossly normal, normal pharynx, TMs + canals normal, uvula midline Neck: full range of motion, supple, no meningismus, no bony tend Respiratory: lungs clear, normal breath sounds, no rhonchi, no respiratory distress, no retraction, no accessory muscle use Cardiovascular #1: normal peripheral pulses, regular rate, rhythm, no edema, no gallop, no JVD, no murmur Gastrointestinal: normal bowel sounds, non tender, soft, no mass, no organomegaly, non-distended, no guarding, no hernia, no pulsatile mass, no rebound Genitourinary: no CVA tenderness Musculoskeletal: normal inspection Neurologic: oriented x3, responsive, workers compensation attorney III-XII nml as tested, motor strength/ tone normal, sensory intact Psychiatric: mood/affect normal Skin: normal color, no rash, warm/dry, palpation normal Lymphatic: normal inspection, no adenopathy Medical Decision Making Diagnostic Impression: Primary Impression: Abdominal pain ER Course With the history exam and presentation, multiple differentials considered, including but not limited to appendicitis, gastritis, cholecystitis, diverticulitis Patient has a very soft benign abdominal exam Bowel sounds are appropriate Unfortunately I do not have a copy of the patient's CAT scan however patient reports that it did not show any emergency findings Patient reports that she has also had nonspecific diarrhea off-and-on Denies any recent travel Patient has had difficulty obtaining outpatient follow-up She will continue to attempt contact with her primary physician and close outpatient follow-up At this time given the patient's exam and fairly extensive recent workup I did not feel that repeat workup was warranted Patient asking for a note regarding her work for today and will attempt close follow-up Last Vital Signs Date Time Temp Pulse Resp B/P (MAP) Pulse Ox O2 Delivery O2 Flow Rate FiO2 03/26/18 05:32 99.0 99 16 100/70 99 Room Air 99.0 Status: unchanged Disposition: HOME, SELF-CARE Condition: Stable Scripts Ciprofloxacin Hcl* (CIPROFLOXACIN HCL*) 500 Mg Tablet 500 MG ORAL Q12H, #6 TAB 0 Refills Prov: Ceasar Siu DO 03/26/18 Ondansetron* (ZOFRAN*) 4 Mg Tablet 4 MG ORAL Q8HR PRN for Nausea & Vomiting, #12 TAB Prov: Ceasar Siu DO 03/26/18 Departure Forms: Return to Work Return to Work in (Days): 1 Return to Work Date: Mar 27, 2018 Patient Instructions: Abdominal Pain, Adult Additional Instructions: Patient is provided with the discharge instructions notified to follow up with primary doctor in the next 2-3 days otherwise return to the er with any worsening symptoms. Please note that this report is being documented using [employer] technology. This can lead to erroneous entry secondary to incorrect interpretation by the dictating instrument. Ceasar Siu DO Mar 26, 2018 05:53
== END 2018-03-26 05:52 | disposition home or self-care (01) ==
LOC: EMR 05:37
DX: R10.9 Unspecified abdominal pain (principal); J45.909 Unspecified asthma, uncomplicated; K58.9 Irritable bowel syndrome, unspecified
CPT/HCPCS: 99283

== ENCOUNTER 2018-06-22 23:58 | Emergency (ER) | payer OTHER ==
[~2018-06-22] VITALS: Ht 165.1 cm; Wt 56.7 kg
[~2018-06-22 23:58] MED LIST changes: +CIPROFLOXACIN500 M2 ORAL; +ZOFRAN4 M3 ORAL
[2018-06-23] MEDS ORDERED: ELIQUIS5 MG PO ×2 (00:13→01:03)
[2018-06-23 00:22] VITALS: BP 99/65
[2018-06-23 00:40] LABS: APPEARANCE,URINE CLOUDY; BILIRUBIN, URINE NEGATIVE (NEGATIVE); GLUCOSE, URINE (UA) NEGATIVE (NEGATIVE); KETONES,URINE NEGATIVE (NEGATIVE); LEUKOCYTE ESTERASE ,URINE 2+ (NEGATIVE); NITRITE,URINE NEGATIVE (NEGATIVE); PH,URINE 7 (4.5-8.0); PROTEIN,URINE 3+ (NEGATIVE); UROBILINOGEN,URINE 8 MG/DL (0.0-1.0)
[2018-06-23 00:50] LABS: COLOR,URINE YELLOW
[2018-06-23] MEDS ORDERED: BACTRIM DS TAB1 EAC1 ORAL (01:03)
--- NOTE | 2018-06-23 01:06 | Emergency Room Report ---
History of Present Illness General Chief Complaint: Female Urogenital Problems Source: Patient Present Illness HPI Patient present with complaints of urinary urgency and sensation of lateral infection Denies any pain with urination denies any abdominal pain denies any chest pain or short of breath Patient reports that she was also recently diagnosed with pulmonary embolism and is running low on her Eliquis Denies any vomiting or diarrhea Patient reports that she has had bladder infections in the past and this feels very similar Allergies: Coded Allergies: LATEX (Unverified Allergy, Mild, Hives, 04/02/15) Kiwi (Verified Allergy, Unknown, 10/21/16) MORPHINE (Verified Allergy, Unknown, 09/27/17) PINEAPPLE (Unverified Allergy, Unknown, 04/22/15) Patient History Past Medical History: see triage record Pertinent Family History: none Last Menstrual Period: unk Now: No Reviewed Nursing Documentation: PMH: Agreed; PSxH: Agreed Nursing Documentation-PMH Hx Cardiac Problems: Yes - heart murmur, Pulmonary embolism Hx Asthma: Yes Hx Gastrointestinal Problems: Yes - IBS Review of Systems All Other Systems: negative except mentioned in HPI Physical Exam Vital Signs Date Time Temp Pulse Resp B/P (MAP) Pulse Ox O2 Delivery O2 Flow Rate FiO2 06/23/18 00:08 98.8 88 16 93/64 96 06/23/18 00:22 Room Air Sp02 EP Interpretation: reviewed, normal General Appearance: well appearing, no apparent distress Head: normocephalic, atraumatic Eyes: bilateral eye PERRL, bilateral eye EOMI ENT: hearing grossly normal, normal pharynx, TMs + canals normal, uvula midline Neck: full range of motion, supple, no meningismus, no bony tend Respiratory: lungs clear, normal breath sounds, no rhonchi, no respiratory distress, no retraction, no accessory muscle use Cardiovascular #1: normal peripheral pulses, regular rate, rhythm, no edema, no gallop, no JVD, no murmur Gastrointestinal: normal bowel sounds, non tender, soft, no mass, no organomegaly, non-distended, no guarding, no hernia, no pulsatile mass, no rebound Musculoskeletal: normal inspection Neurologic: oriented x3, responsive, harmonica maker III-XII nml as tested, motor strength/ tone normal, sensory intact Psychiatric: mood/affect normal Skin: normal color, no rash, warm/dry, palpation normal Lymphatic: normal inspection, no adenopathy Medical Decision Making Diagnostic Impression: Primary Impression: UTI (urinary tract infection) ER Course Patient's urine sample that show evidence of UTI Patient also asking regarding refill of her Eliquis I did discuss that it would be most important and appropriate for her prescribing physicians to continue this medicine however given the importance of this medicine I did prescribe while the patient is attempting appropriate hematology follow-up Labs Test 06/23/18 00:20 Urine Color Yellow Urine Appearance Cloudy Urine pH 7 (4.5-8.0) Urine Specific [place] 1.010 (1.005-1.035) Urine Protein 3+ (NEGATIVE) Urine Glucose (UA) Negative (NEGATIVE) Urine Ketones Negative (NEGATIVE) Urine Blood 5+ (NEGATIVE) Urine Nitrite Negative (NEGATIVE) Urine Bilirubin Negative (NEGATIVE) Urine Urobilinogen 8 MG/DL (0.0-1.0) Urine Leukocyte Esterase 2+ (NEGATIVE) Urine RBC Tntc /HPF (0 - 2) Urine WBC 40-60 /HPF (0 - 2) Urine Squamous Epithelial Cells Moderate /LPF (NONE/OCC) Urine Bacteria Few /HPF (NONE) Urine HCG, Qualitative Negative (NEGATIVE) Last Vital Signs Date Time Temp Pulse Resp B/P (MAP) Pulse Ox O2 Delivery O2 Flow Rate FiO2 06/23/18 00:22 98.7 79 16 99/65 97 Room Air Status: unchanged Disposition: HOME, SELF-CARE Condition: Stable Scripts Apixaban (ELIQUIS) 5 Mg Tablet 5 MG PO DAILY, #20 TAB Prov: Ceasar Siu DO 06/23/18 Trimethoprim/Sulfamethoxazole 160/800* (BACTRIM DS TABLET*) 1 Each Tablet 1 TAB ORAL Q12H, #14 TAB 0 Refills Prov: Ceasar Siu DO 06/23/18 Patient Instructions: Urinary Tract Infection Additional Instructions: Patient is provided with the discharge instructions notified to follow up with primary doctor in the next 2-3 days otherwise return to the er with any worsening symptoms. Please note that this report is being documented using [employer] technology. This can lead to erroneous entry secondary to incorrect interpretation by the dictating instrument. Ceasar Siu DO Jun 23, 2018 01:06
[2018-06-23 01:13] VITALS: BP 97/68
[2018-06-23 01:14] VITALS: BP 97/68
== END 2018-06-23 01:18 | disposition home or self-care (01) ==
LOC: EMR 06-23 00:15
DX: N39.0 Urinary tract infection, site not specified (principal); J45.909 Unspecified asthma, uncomplicated; Z86.711 Personal history of pulmonary embolism; Z91.040 Latex allergy status; Z91.018 Allergy to other foods; Z88.5 Allergy status to narcotic agent
CPT/HCPCS: 81003; 81025; 87086; 99283

== ENCOUNTER 2019-06-24 01:30 | Emergency (ER) | payer MEDICAID, OTHER ==
[~2019-06-24] VITALS: Ht 170.2 cm; Wt 59.9 kg
[~2019-06-24 01:30] MED LIST changes: +BACTRIM DS TAB1 EAC1 ORAL; +ELIQUIS5 MG PO
[2019-06-24 01:44] VITALS: BP 102/65
--- NOTE | 2019-06-24 02:16 | Emergency Room Report ---
History of Present Illness General Chief Complaint: Pelvic Pain Source: Patient Present Illness HPI This is a 23-year-old female with history of pulmonary embolism. She presents with complaint of right pelvic pain. She had left pelvic pain heard 3 days ago. She went to [facility] and had an ultrasound that showed a complex left ovarian cyst measuring about 4 cm. There was septation and debris. She was sent home. Today she had some mild right-sided pain. She was concerned as when she came in. No dysuria frequency. No hematuria. Pain is mild. No nausea no vomiting. Denies any other complaint. Allergies: Coded Allergies: LATEX (Unverified Allergy, Mild, Hives, 04/02/15) Kiwi (Verified Allergy, Unknown, 10/21/16) MORPHINE (Verified Allergy, Unknown, 09/27/17) PINEAPPLE (Unverified Allergy, Unknown, 04/22/15) Patient History Past Medical History: see triage record, old chart reviewed Past Surgical History: none Pertinent Family History: none Social History: Denies: smoking Last Menstrual Period: 05/09/19 : 4 Para: 0 Immunizations: other Reviewed Nursing Documentation: PMH: Agreed; PSxH: Agreed Nursing Documentation-PMH Hx Cardiac Problems: Yes - Pulmonary Embolism Hx Asthma: Yes Hx Gastrointestinal Problems: Yes - IBS Review of Systems Eye: Denies: eye pain, blurred vision ENT: Denies: ear pain, nose congestion, throat swelling Respiratory: Denies: cough, shortness of breath Cardiovascular: Denies: chest pain, palpitations Gastrointestinal: Denies: abdominal pain, diarrhea, nausea, vomiting Musculoskeletal: Denies: back pain, joint pain Skin: Denies: rash Neurological: Denies: headache, numbness Endocrine: Denies: increased thirst, increased urine Hematologic/Lymphatic: Denies: easy bruising All Other Systems: negative except mentioned in HPI Physical Exam Vital Signs Date Time Temp Pulse Resp B/P (MAP) Pulse Ox O2 Delivery O2 Flow Rate FiO2 06/24/19 01:38 98.2 73 16 100/70 (80) 96 Room Air Normal vital signs Sp02 EP Interpretation: reviewed, normal General Appearance: well appearing, no apparent distress, alert Head: normocephalic, atraumatic Eyes: bilateral eye PERRL, bilateral eye EOMI ENT: hearing grossly normal, normal pharynx Neck: full range of motion, supple, no meningismus Respiratory: chest non-tender, lungs clear, normal breath sounds Cardiovascular #1: regular rate, rhythm, no murmur Gastrointestinal: normal bowel sounds, non tender, no mass, no organomegaly, no bruit, non-distended Musculoskeletal: back normal, gait/station normal, normal range of motion Psychiatric: mood/affect normal Medical Decision Making Diagnostic Impression: Primary Impression: Pelvic pain ER Course Patient presents with pelvic pain. She looks very comfortable. She was concerned about ovarian cyst since she had one on the left side. I see no need for repeat ultrasound since it did not any cyst on the right side from 3 days ago. I doubt that a large cyst would be developed that can cause torsion. Patient is very comfortable. No evidence of any infection. Patient reassured and told to repeat ultrasound and FINANCE BUSINESS MANAGER follow-up for the left complex ovarian cyst. She has a history of PE and miscarriages. No family history. She will need a hematology work-up to see if she has any abnormal antibody that predispose her for PE. In the meantime, recommend that patient take a baby aspirin every day. Last Vital Signs Date Time Temp Pulse Resp B/P (MAP) Pulse Ox O2 Delivery O2 Flow Rate FiO2 06/24/19 01:38 98.2 73 16 100/70 (80) 96 Room Air Status: improved Disposition: HOME, SELF-CARE Condition: Stable Scripts Aspirin* (ASPIR 81*) 81 Mg Tablet. 81 MG ORAL DAILY, #100 TAB Prov: Rafa Ford MD 06/24/19 Ibuprofen* (MOTRIN*) 600 Mg Tablet 600 MG ORAL THREE TIMES A DAY, #30 TAB 0 Refills Prov: Rafa Ford MD 06/24/19 Patient Instructions: Pelvic Pain, Female Additional Instructions: Follow-up with your doctor in 7 days. You may need a referral to see bank runner for follow-up on the left ovarian cyst. Return if symptoms worsen. Rafa Ford MD Jun 24, 2019 02:16
[2019-06-24 02:42] LABS: APPEARANCE,URINE CLEAR; BILIRUBIN, URINE NEGATIVE (NEGATIVE); GLUCOSE, URINE (UA) NEGATIVE (NEGATIVE); KETONES,URINE NEGATIVE (NEGATIVE); LEUKOCYTE ESTERASE ,URINE NEGATIVE (NEGATIVE); NITRITE,URINE NEGATIVE (NEGATIVE); PH,URINE 6 (4.5-8.0); UROBILINOGEN,URINE NORMAL MG/DL (0.0-1.0)
[2019-06-24 03:09] LABS: PROTEIN,URINE NEGATIVE (NEGATIVE)
[2019-06-24 03:10] LABS: COLOR,URINE PALE YELLOW
[2019-06-24] MEDS ORDERED: IBUPROFEN600 MG ORAL (03:23)
[2019-06-24] MEDS ORDERED: ASPIR 8181 MG ORAL (03:23)
[2019-06-24 03:26] VITALS: BP 106/70
== END 2019-06-24 03:30 | disposition home or self-care (01) ==
LOC: EMR 03:26
DX: R10.2 Pelvic and perineal pain (principal); J45.909 Unspecified asthma, uncomplicated; K58.9 Irritable bowel syndrome, unspecified; Z86.711 Personal history of pulmonary embolism; Z91.040 Latex allergy status; Z88.5 Allergy status to narcotic agent; Z91.018 Allergy to other foods
CPT/HCPCS: 81003; 81025; Z7502; 99283

== ENCOUNTER 2019-11-07 00:49 | Emergency (ER) | payer MEDICAID ==
[~2019-11-07] VITALS: Ht 165.1 cm; Wt 59.9 kg
[~2019-11-07 00:49] MED LIST changes: +ASPIR 8181 MG ORAL
[2019-11-07 00:58] VITALS: BP 103/58
--- NOTE | 2019-11-07 00:58 | NUR ---
ED Nurse Note: Walk-in patient with complaints of dizziness x 1 week, with an episode tonight while at work, employees noticed. Patient denies LOC, and admits to intermittent headaches. Line started and labs sent, 20G at right AC.
--- NOTE | 2019-11-07 01:12 | Emergency Room Report ---
History of Present Illness General Chief Complaint: Dizziness Source: Patient Present Illness HPI This is a 24-year-old female with a history of PE. She presents with chief complaint of dizziness and lightheadedness. This been ongoing for about a week. Worse when she stands up. At work today she states she blacked out for a few seconds. No head trauma. No shortness of breath. Does complain some occasional neck pain. No fever chills but decreased appetite. [place] nauseous but no vomiting. No diarrhea. No urinary complaint. Said that she is not . Allergies: Coded Allergies: LATEX (Unverified Allergy, Mild, Hives, 04/02/15) Kiwi (Verified Allergy, Unknown, 10/21/16) MORPHINE (Verified Allergy, Unknown, 09/27/17) PINEAPPLE (Unverified Allergy, Unknown, 04/22/15) COVID-19 Screening Contact w/high risk pt: No Recent Travel to affected area: No Experienced COVID-19 symptoms?: No Patient History Past Medical History: see triage record, old chart reviewed Past Surgical History: none Pertinent Family History: none Social History: Denies: smoking Last Menstrual Period: 10/12 Now: No Immunizations: other Reviewed Nursing Documentation: PMH: Agreed; PSxH: Agreed Nursing Documentation-PMH Hx Cardiac Problems: No Hx Asthma: Yes Hx Gastrointestinal Problems: No Hx Neurological Problems: No Review of Systems Eye: Denies: eye pain, blurred vision ENT: Denies: ear pain, nose congestion, throat swelling Respiratory: Denies: cough, shortness of breath Cardiovascular: Denies: chest pain, palpitations Gastrointestinal: Denies: abdominal pain, diarrhea, nausea, vomiting Musculoskeletal: Denies: back pain, joint pain Skin: Denies: rash Neurological: Reports: dizziness; Denies: headache, numbness Endocrine: Denies: increased thirst, increased urine Hematologic/Lymphatic: Denies: easy bruising All Other Systems: negative except mentioned in HPI Physical Exam Vital Signs Date Time Temp Pulse Resp B/P (MAP) Pulse Ox O2 Delivery O2 Flow Rate FiO2 11/07/19 00:52 98.2 69 19 103/58 (73) 94 Room Air Vitals normal Sp02 EP Interpretation: reviewed, normal General Appearance: well appearing, no apparent distress, alert Head: normocephalic, atraumatic Eyes: bilateral eye PERRL, bilateral eye EOMI ENT: hearing grossly normal, normal pharynx Neck: full range of motion, supple, no meningismus Respiratory: chest non-tender, lungs clear, normal breath sounds Cardiovascular #1: regular rate, rhythm, no murmur Gastrointestinal: normal bowel sounds, non tender, no mass, no organomegaly, no bruit, non-distended Musculoskeletal: back normal, normal range of motion, gait/station normal Psychiatric: mood/affect normal Medical Decision Making Diagnostic Impression: Primary Impression: Dizziness ER Course Patient presents with dizziness. Probably secondary to dehydration since she says she has not been eating much or drinking much in the last week. She may have a mild viral illness with elevated lymphocyte count and monocyte count. No evidence of bacterial infection. No evidence of PE. CT scan is negative. She does not meet criteria for coronavirus testing. EKG Diagnostic Results Rate: normal Rhythm: NSR ST Segments: no acute changes Rhythm Strip Diag. Results EP Interpretation: yes Rate: 65 Rhythm: NSR, no PVC's, no ectopy CT/MRI/US Diagnostic Results CT/MRI/US Diagnostic Results : Imaging Test Ordered: CTA chest Impression Negative per radiologist Last Vital Signs Date Time Temp Pulse Resp B/P (MAP) Pulse Ox O2 Delivery O2 Flow Rate FiO2 11/07/19 00:52 98.2 69 19 103/58 (73) 94 Room Air Status: improved Disposition: HOME, SELF-CARE Condition: Stable Patient Instructions: Dizziness Additional Instructions: Increase fluids. Follow-up with your doctor in 7 days. Return if worse. Rafa Ford MD Nov 07, 2019 01:12
[2019-11-07 01:39] LABS: BASOPHILS % (AUTO) 0.7 % (0.0-2.0); EOSINOPHILS % (AUTO) 1.7 % (0.0-3.0); HEMATOCRIT 31.9 % (37.0-47.0); HEMOGLOBIN 10.8 G/DL (12.0-16.0); LYMPHOCYTES % (AUTO) 53.3 % (20.0-45.0); MEAN CORPUSCULAR VOLUME 81 FL (80-99); MONOCYTES % (AUTO) 11.2 % (1.0-10.0); NEUTROPHILS % (AUTO) 33.1 % (45.0-75.0); PLATELET COUNT 212 K/UL (150-450); RED BLOOD COUNT 3.96 M/UL (4.20-5.40); RED CELL DISTRIBUTION WIDTH 14.1 % (11.6-14.8); WHITE BLOOD COUNT 3.6 K/UL (4.8-10.8)
--- NOTE | 2019-11-07 01:46 | NUR ---
ED Nurse Note: Patient tolerated medication administration well, IV fluids still running. Will continue to monitor for lab results and discharge.
[2019-11-07 01:48] LABS: ANION GAP 8 mmol/L (5-15); CALCIUM 8.6 MG/DL (8.5-10.1); CARBON DIOXIDE 26 MMOL/L (21-32); CHLORIDE 103 MMOL/L (98-107); CREATININE 0.7 MG/DL (0.55-1.30); POTASSIUM 3.6 MMOL/L (3.5-5.1); SODIUM 137 MMOL/L (136-145)
[2019-11-07 02:01] LABS: BLOOD UREA NITROGEN 7 mg/dL (7-18)
[2019-11-07 02:10] LABS: APPEARANCE,URINE CLEAR; BILIRUBIN, URINE NEGATIVE (NEGATIVE); COLOR,URINE PALE YELLOW; GLUCOSE, URINE (UA) NEGATIVE (NEGATIVE); KETONES,URINE NEGATIVE (NEGATIVE); LEUKOCYTE ESTERASE ,URINE NEGATIVE (NEGATIVE); NITRITE,URINE NEGATIVE (NEGATIVE); PH,URINE 6.5 (4.5-8.0); PROTEIN,URINE 1+ (NEGATIVE); UROBILINOGEN,URINE NORMAL MG/DL (0.0-1.0)
--- NOTE | 2019-11-07 02:11 | NUR ---
ED Nurse Note: Patient ambulated to restroom with steady gait and was able to void. Urine collected and walked down to lab. Will continue to monitor for impending order.
[2019-11-07] MEDS ORDERED: Omnipaque 350 100ml vial INJ PRN (02:15)
--- NOTE | 2019-11-07 03:29 | NUR ---
ED Nurse Note: Patient being taken down for CT. Will monitor for return.
--- NOTE | 2019-11-07 03:59 | NUR ---
ED Nurse Note: Patient returned from CT.
--- NOTE | 2019-11-07 04:05 | Diagnostic Imaging Report ---
EXAM: CT Angiography Chest With Intravenous Contrast CLINICAL HISTORY: SOB TECHNIQUE: Axial computed tomographic angiography images of the chest with intravenous contrast. CTDI is 3 mGy and DLP is 107 mGy-cm. One or more of the following dose reduction techniques were used: automated exposure control, adjustment of the mA and/or kV according to patient size, use of iterative reconstruction technique. MIP reconstructed images were created and reviewed. COMPARISON: No relevant prior studies available. FINDINGS: Pulmonary arteries: Unremarkable. No pulmonary embolism. Aorta: No acute findings. No thoracic aortic aneurysm. Lungs: Unremarkable. No mass. No consolidation. Pleural space: Unremarkable. No significant effusion. No pneumothorax. Heart: Unremarkable. No cardiomegaly. No significant pericardial effusion. No evidence of RV dysfunction. Bones/joints: No acute fracture. No dislocation. Soft tissues: Unremarkable. Lymph nodes: Unremarkable. No enlarged lymph nodes. IMPRESSION: Normal chest CTA. No pulmonary embolism.
--- NOTE | 2019-11-07 04:30 | NUR ---
ED Nurse Note: ERMD at bedside.
[2019-11-07 04:37] VITALS: BP 100/62
--- NOTE | 2019-11-07 04:50 | NUR ---
ER DISCHARGE NOTE: Patient is cleared to be discharged per ERMD, pt is aox4, on room air, with stable vital signs. pt was given dc and prescription instructions, pt was able to verbalize understanding, pt id band and iv site removed without complications. pt is able to ambulate with steady gait. pt took all belongings.
[2019-11-07 04:51] VITALS: BP 100/62
== END 2019-11-07 04:51 | disposition home or self-care (01) ==
LOC: EMR 01:13
DX: R42 Dizziness and giddiness (principal); Z86.711 Personal history of pulmonary embolism; Z88.6 Allergy status to analgesic agent; Z91.040 Latex allergy status; Z91.018 Allergy to other foods; M54.2 Cervicalgia
CPT/HCPCS: 36415; 71275; 80048; 81001; 81025; 85025; 85379; 93005; 96361; 96374; J2405; J7030; Q9967; Z7502; 99284

== ENCOUNTER 2020-08-18 00:21 | Emergency (ER) | payer MEDICAID, OTHER ==
[~2020-08-18] VITALS: Ht 165.1 cm; Wt 75.7 kg
[2020-08-18] MEDS ORDERED: LOVENOX10 MG SUBQ (00:35)
[2020-08-18 00:47] VITALS: BP 105/67
--- NOTE | 2020-08-18 00:48 | Emergency Room Report ---
History of Present Illness General Chief Complaint: Multiple Trauma/Fall Source: Patient Present Illness HPI Patient is a 25 yo F, approximately 18 weeks 3 days and history of pulmonary embolism on Lovenox who presents to the ER status post fall. Patient states that she tripped and fell on a broken stair and landed onto her abdomen. She states this occurred over 3 hours ago. She denies any head trauma or loss of consciousness. She denies any blurry vision or focal weakness. She states she does not want any imaging of her head as she did not hit her head. Patient states that she has mild abdominal cramping. She states that she has not yet felt the baby moving and still does not feel the baby moving. She denies any vaginal bleeding or discharge. She denies any strong abdominal pain but wanted to come get the baby checked. Patient denies any prodromal symptoms such as chest pain shortness of breath or dizziness prior to her fall. Allergies: Coded Allergies: LATEX (Unverified Allergy, Mild, Hives, 04/02/15) Kiwi (Verified Allergy, Unknown, 10/21/16) MORPHINE (Verified Allergy, Unknown, 09/27/17) PINEAPPLE (Unverified Allergy, Unknown, 04/22/15) COVID-19 Screening Contact w/high risk pt: No Recent Travel to affected area: No Experienced COVID-19 symptoms?: No COVID-19 Testing performed DINKER: Yes - 08/04/20 COVID-19 Screening: Negative COVID-19 COVID-19 Testing Source: clinic Patient History Last Menstrual Period: april 23, Now: Yes - 18 weeks 2 days : 1 Para: 0 Reviewed Nursing Documentation: PMH: Agreed; PSxH: Agreed Nursing Documentation-PMH Past Medical History: No History, Except For Hx Cardiac Problems: No Hx Asthma: Yes Hx Gastrointestinal Problems: No Hx Neurological Problems: No Review of Systems All Other Systems: negative except mentioned in HPI Physical Exam Vital Signs Date Time Temp Pulse Resp B/P (MAP) Pulse Ox O2 Delivery O2 Flow Rate FiO2 08/18/20 00:31 99.3 98 18 103/66 (78) 98 Room Air Sp02 EP Interpretation: reviewed, normal General Appearance: no apparent distress, alert, GCS 15, non-toxic Head: normocephalic, atraumatic Eyes: bilateral eye normal inspection, bilateral eye PERRL ENT: hearing grossly normal, normal pharynx, no angioedema, normal voice Neck: full range of motion, supple/symm/no masses Respiratory: chest non-tender, lungs clear, normal breath sounds, speaking full sentences Cardiovascular #1: regular rate, rhythm, no edema Gastrointestinal: normal bowel sounds, non tender, soft, non-distended, no guarding, no rebound, other - I was not able to elicit any abdominal pain on my examination, gravid uterus Rectal: deferred Genitourinary: no CVA tenderness 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 Patient has no abdominal pain on my examination. UA demonstrates no evidence for blood. Patient's abdominal ultrasound demonstrates no evidence for intra-abdominal pathology due to trauma. Patient's pelvic ultrasound demonstrates IUP with heart tones in the 140s likely 17 weeks and 3 days. Patient's placenta demonstrates small hypoechoic region likely placental aviles. 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 She has been given a copy of her ultrasound results. She has been told to refrain from any heavy lifting. After discussing risks and benefits of further diagnostics, treatment plans, as well as indications for and risks of admission, the patient is agreeable to bein g discharged home. I have explained that their evaluation and treatment in the emergency department today is an important step towards them achieving better health but that their evaluation today is not intended to replace further evaluation and treatment by a physician in their local clinic. I have explained that while the current findings suggest no immediate life threatening emergency they will require further evaluation and treatment by a physician of their choice in their area. They understand that it will be necessary for them to review the final reports of their ED visit with their clinic physician. We have reviewed indications for return to the Emergency Department. I have explained that additional time may need to pass and/or additional testing as an outpatient may be necessary before a definitive diagnosis can be made. They tell me they are willing to follow up as instructed within the timeframe I recommend. They appear to understand what we discussed. Additionally they understand that if th ey are unable to be seen by an outpatient physician they are welcome, and in fact should, return to the Emergency Department for a repeat evaluation. The patient is stable at time of discharge. Laboratory Tests Test 08/18/20 00:30 White Blood Count 4.9 K/UL (4.8-10.8) Red Blood Count 3.56 M/UL (4.20-5.40) L Hemoglobin 10.8 G/DL (12.0-16.0) L Hematocrit 32.3 % (37.0-47.0) L Mean Corpuscular Volume 91 FL (80-99) Mean Corpuscular Hemoglobin 30.4 PG (27.0-31.0) Mean Corpuscular Hemoglobin Concent 33.5 G/DL (32.0-36.0) Red Cell Distribution Width 14.4 % (11.6-14.8) Platelet Count 199 K/UL (150-450) Mean Platelet Volume 7.6 FL (6.5-10.1) Neutrophils (%) (Auto) 60.9 % (45.0-75.0) Lymphocytes (%) (Auto) 24.3 % (20.0-45.0) Monocytes (%) (Auto) 11.6 % (1.0-10.0) H Eosinophils (%) (Auto) 2.7 % (0.0-3.0) Basophils (%) (Auto) 0.5 % (0.0-2.0) Prothrombin Time 10.0 SEC (9.30-11.50) Prothrombin Time INR 0.9 (0.9-1.1) Activated Partial Thromboplast Time 28 SEC (23-33) Urine Color Yellow Urine Appearance Clear Urine pH 7 (4.5-8.0) Urine Specific [place] 1.010 (1.005-1.035) Urine Protein 3+ (NEGATIVE) H Urine Glucose (UA) Negative (NEGATIVE) Urine Ketones 1+ (NEGATIVE) H Urine Blood Negative (NEGATIVE) Urine Nitrite Negative (NEGATIVE) Urine Bilirubin Negative (NEGATIVE) Urine Urobilinogen Normal MG/DL (0.0-1.0) Urine Leukocyte Esterase 1+ (NEGATIVE) H Urine RBC 0-2 /HPF (0 - 2) Urine WBC 0-2 /HPF (0 - 2) Urine Squamous Epithelial Cells Few /LPF (NONE/OCC) Urine Bacteria None /HPF (NONE) Sodium Level 137 MMOL/L (136-145) Potassium Level 3.3 MMOL/L (3.5-5.1) L Chloride Level 104 MMOL/L (98-107) Carbon Dioxide Level 27 MMOL/L (21-32) Anion Gap 6 mmol/L (5-15) Blood Urea Nitrogen 10 mg/dL (7-18) Creatinine 0.8 MG/DL (0.55-1.30) Estimated Glomerular Filtration Rate > 60 mL/min (>60) Glucose Level 100 MG/DL (74-106) Calcium Level 8.7 MG/DL (8.5-10.1) Magnesium Level 1.8 MG/DL (1.8-2.4) Total Bilirubin 0.1 MG/DL (0.2-1.0) L Aspartate Amino Transferase (AST) 22 U/L (15-37) Alanine Aminotransferase (ALT) 22 U/L (12-78) Alkaline Phosphatase 87 U/L (46-116) Total Protein 6.9 G/DL (6.4-8.2) Albumin 2.6 G/DL (3.4-5.0) L Globulin 4.3 g/dL Albumin/Globulin Ratio 0.6 (1.0-2.7) L Lipase 193 U/L (73-393) Human Chorionic Gonadotropin, Quant 9959 mIU/mL (1-6) H Urine Opiates Screen Negative (NEGATIVE) Urine Barbiturates Screen Negative (NEGATIVE) Phencyclidine (PCP) Screen Negative (NEGATIVE) Urine Amphetamines Screen Negative (NEGATIVE) Urine Benzodiazepines Screen Negative (NEGATIVE) Urine Cocaine Screen Negative (NEGATIVE) Urine Marijuana (THC) Screen Negative (NEGATIVE) Last Vital Signs Date Time Temp Pulse Resp B/P (MAP) Pulse Ox O2 Delivery O2 Flow Rate FiO2 08/18/20 00:31 99.3 98 18 103/66 (78) 98 Room Air Disposition: HOME, SELF-CARE Condition: Stable Referrals: NOT CHOSEN IPA/MD,REFERRING (PCP) Additional Instructions: The patient was provided with discharge instructions, notified to follow-up with a primary care doctor and or specialist in the next 24-48 hours, and to return to the ED if they have worsening of their symptoms. Please note that this report is being documented using [employer] technology. This can lead to erroneous entry secondary to incorrect interpretation by the dictating instrument. Nicky Osuna M.D. Aug 18, 2020 00:51
--- NOTE | 2020-08-18 00:49 | NUR ---
Patient walked into ED c/o abdominal pain after a fall, patient reports of missing a step in the stairs and complains medical abdominal pain, denies any LOC, nausea or dizziness. patient reports of being 18 weeks and 3 days ED Nurse Note: Pt walked in from home, walks with a steady gait, is axox4, vitals are stable on RA. Pt co of pain after a fall on some stairs earlier today. States that she is 18 weeks . She is co of 7/10 abdominal pain. She staters that there is no bleeding vaginally.
[2020-08-18 00:52] LABS: APPEARANCE,URINE CLEAR; BASOPHILS % (AUTO) 0.5 % (0.0-2.0); BILIRUBIN, URINE NEGATIVE (NEGATIVE); EOSINOPHILS % (AUTO) 2.7 % (0.0-3.0); GLUCOSE, URINE (UA) NEGATIVE (NEGATIVE); HEMATOCRIT 32.3 % (37.0-47.0); HEMOGLOBIN 10.8 G/DL (12.0-16.0); KETONES,URINE 1+ (NEGATIVE); LEUKOCYTE ESTERASE ,URINE 1+ (NEGATIVE); LYMPHOCYTES % (AUTO) 24.3 % (20.0-45.0); MEAN CORPUSCULAR VOLUME 91 FL (80-99); MONOCYTES % (AUTO) 11.6 % (1.0-10.0); NEUTROPHILS % (AUTO) 60.9 % (45.0-75.0); NITRITE,URINE NEGATIVE (NEGATIVE); PH,URINE 7 (4.5-8.0); PLATELET COUNT 199 K/UL (150-450); PROTEIN,URINE 3+ (NEGATIVE); RED BLOOD COUNT 3.56 M/UL (4.20-5.40); RED CELL DISTRIBUTION WIDTH 14.4 % (11.6-14.8); UROBILINOGEN,URINE NORMAL MG/DL (0.0-1.0); WHITE BLOOD COUNT 4.9 K/UL (4.8-10.8)
[2020-08-18 00:53] LABS: COLOR,URINE YELLOW
[2020-08-18 01:06] LABS: INR 0.9 (0.9-1.1)
[2020-08-18 01:29] LABS: ANION GAP 6 mmol/L (5-15); BLOOD UREA NITROGEN 10 mg/dL (7-18); CALCIUM 8.7 MG/DL (8.5-10.1); CARBON DIOXIDE 27 MMOL/L (21-32); CHLORIDE 104 MMOL/L (98-107); CREATININE 0.8 MG/DL (0.55-1.30); POTASSIUM 3.3 MMOL/L (3.5-5.1); SODIUM 137 MMOL/L (136-145)
[2020-08-18 01:32] LABS: ALANINE AMINOTRANSFERASE 22 U/L (12-78); ALBUMIN 2.6 G/DL (3.4-5.0); ALBUMIN/GLOBULIN RATIO 0.6 (1.0-2.7); ALKALINE PHOSPHATASE 87 U/L (46-116); ASPARTATE AMINO TRANSFERASE 22 U/L (15-37); BILIRUBIN,TOTAL 0.1 MG/DL (0.2-1.0)
--- NOTE | 2020-08-18 03:34 | Diagnostic Imaging Report ---
EXAM: US Abdomen Complete CLINICAL HISTORY: TRAUMA TECHNIQUE: Real-time ultrasound of the abdomen with image documentation. COMPARISON: No relevant prior studies available. FINDINGS: Liver: Unremarkable. No mass. No intrahepatic bile duct dilation. Gallbladder: The gallbladder is partially contracted. No gallstones, gallbladder wall thickening or pericholecystic fluid. Common bile duct: Unremarkable as visualized. No stones. No dilation. Pancreas: Unremarkable as visualized. Kidneys: Unremarkable. No stones. No solid mass. No hydronephrosis. Spleen: Unremarkable. No splenomegaly. Aorta: Unremarkable. No aneurysm. Inferior vena cava: Unremarkable. IMPRESSION: Normal abdominal ultrasound.
[2020-08-18 04:53] VITALS: BP 124/92
--- NOTE | 2020-08-18 04:56 | NUR ---
ER DISCHARGE NOTE: Patient is cleared to be discharged per ERMD, pt is aox4, on room air, with stable vital signs. pt was given dc and prescription instructions, pt was able to verbalize understanding, pt id band and iv site removed without complications. pt is able to ambulate with steady gait. pt took all belongings. Pt left in a private car
--- NOTE | 2020-08-18 06:26 | Diagnostic Imaging Report ---
EXAM: US , Limited CLINICAL HISTORY: Fell down stairs a few days ago. TECHNIQUE: Real-time limited ultrasound of the maternal uterus with image documentation. COMPARISON: No relevant prior studies available. FINDINGS: Single live intrauterine gestation in cephalic presentation. morphologic measurements correspond to gestational age of 17 weeks and 3 days. Normal cardiac activity, with a heart rate of 146 bpm. Normal amniotic fluid volume. The cervix is closed and measures 3.5 cm in length. The placenta is posterior in location. No evidence of placental abruption. There is a 3.0 x 0.9 x 1.1 cm hypoechoic region within the placenta, most likely a small placental aviles. The left ovary is within normal limits. The right ovary is not visualized within the right adnexum. There is no free pelvic fluid. IMPRESSION: No evidence of placental abruption. Probable small placental aviles measuring up to 3 cm in length. Normal cardiac activity. Normal amniotic fluid volume. Cervix is closed and normal in length.
== END 2020-08-18 05:03 | disposition home or self-care (01) ==
LOC: EMR 00:36
DX: O26.892 Other specified pregnancy related conditions, second trimester (principal); R10.9 Unspecified abdominal pain; J45.909 Unspecified asthma, uncomplicated; Z3A.17 17 weeks gestation of pregnancy; W10.9XXA Fall (on) (from) unspecified stairs and steps, initial encounter; Y93.01 Activity, walking, marching and hiking; Y92.9 Unspecified place or not applicable; Z91.040 Latex allergy status; Z88.5 Allergy status to narcotic agent; Z91.018 Allergy to other foods
CPT/HCPCS: 36415; 76700; 76805; 80053; 80307; 81003; 83690; 83735; 84702; 85025; 85610; 85730; 86850; 86900; 86901; 96360; Z7502; 99284